=== PATIENT | female | born 1940 | race Hispanic/Latino ===

== ENCOUNTER 2023-07-04 09:41 | Emergency (ER) | payer OTHER ==
--- OUTSIDE RECORDS SUMMARY | 2023-07-04 09:43 | XMS REPORT | Clinical Summary ---
:1940 Author Organization [facility] MD [facility] Center Address [address] [place] [address] Care Team Providers Name Role Phone Conchis Rodney MD Unavailable Salvador Maxwell MD Primary Care Provider Allergies Active Allergy Reactions Criticality Noted Date Comments Codeine Itching, Rash Low 03/27/2019 Medications Medication Sig Dispensed Refills Start Date End Date Status pravastatin (PRAVACHOL) daily. 0 Active 80 mg tablet omeprazole (PriLOSEC) 20 daily. 3 11/14/2018 Active mg capsule atenolol (TENORMIN) 25 daily. 0 Active mg tablet amLODIPine (NORVASC) 5 daily. 0 Active mg tablet aspirin 81 mg EC tablet Take 81 mg by 0 Active mouth daily. calcium Take by mouth 0 Active carbonate/vitamin D3 daily. (CALTRATE 600 + D ORAL) cholecalciferol, vitamin Take 400 Units 0 Active D3, 400 units tablet by mouth daily. cyanocobalamin (VITAMIN Take 1,000 mcg 0 Active B-12) 1000 mcg tablet by mouth daily. omega-3 acid ethyl Take 1 g by 0 Active esters (LOVAZA) 1 g mouth daily. capsule garlic 1 mg cap Take by mouth 0 Active daily. flaxseed powd Take by mouth 0 Ac tive daily. ferrous sulfate 325 mg Take 325 mg by 0 Active (65 mg elemental iron mouth daily. per tablet) tablet alendronate (FOSAMAX) 70 Take 1 tablet 0 Active mg tablet (70 mg) by mouth once a week. Active Problems Problem Noted Date Diagnosed Date Skin lesion 07/15/2020 Pulmonary nodules 01/08/2020 History of malignant neoplasm of ovary 01/07/2020 Encounter for examination prior to antineoplastic 05/22/2019 chemotherapy Constipation 05/08/2019 H/O: cardiovascular disease 04/14/2019 Hypertension 04/14/2019 Gastroesophageal reflux disease 04/14/2019 Encounter for other preprocedural examination 04/13/2019 Overview: Formatting of this note is dif ferent from the original. Lynn yung Oca is a 79 y.o. femal e who presents to POEM service for risk assessment and medical optimization prior to surgery. Surgical and Procedural Summary Future Procedures (Tomorrow to 05/13/20 19) Date Time Procedures Providers Location Status 04/14/2019 1015 Complete Abdominal Hyste rectomyOophorectomy, Partial Or Total, Unilateral Or BilateralLimited Lymphadenectomy For Staging; Pelvic And Para- Aortic Lymph NodesResection (Initial) Of Ovaria n, Tubal, Or Peritoneal Malignancy With Radical Dissection For Debulking (psb) Kyle Leija OR Scheduled Open case Proj Length(mins): 345 Malignant neoplasm of ovary 03/30/2019 Cancer Staging: Clinical stage from 04/14: Stage IIB (Primary) - Signed by Kyle Leija MD on 05/08/2019 Edema of foot 03/28/2019 Osteoporosis 03/23/2019 Abdominal or pelvic swelling, mass, or lump, left lower quad rant 03/23/2019 Elevated cancer antigen 125 (CA 125) 03/23/2019 Encounters Date Type Department Care Team Description 04/19/2023 Follow-Up MD Díaz in Kyle Leija, Malignant n eoplasm of unspecified ovary (Primary Dx); 11:00 AM CDT Mary Ellen Gordillo MD History of malignant neoplasm of ovary; Gynecology Yuan Cortes Pulmonary nodules [address] [place] [address] 04/19/2023 Travel 10/12/[address] IMAGING Mesha Salazar, Malignant neoplasm of unspec ified ovary 10:33 AM CDT - [address] [place] Discharge Disposition: Home 10/12/2022 Main Bldg, 3rd 11:59 PM [place] [address] 10/12/2022 Travel 10/09/2022 Follow-Up MD Díaz in Kyle Leija, Malignant n eoplasm of unspecified ovary (Primary Dx); 1:00 PM ENROLLMENT MANAGEMENT DIRECTOR Mary Ellen Cid - Neoplasm, malignant of ovary <Unspecifie d>; Gynecology Mesha Salazar, History of malignant neoplas m of ovary [address] [place] [address] 10/09/2022 Travel 10/08/2022 Orders Only MD Díaz in Mesha Salazar, Malignant bill plasm [place] of unspecified ovary Gynecology (Primary Dx) [address] [place] [address] 09/02/2022 Orders Only MD Díaz in Mesha Salazar, [place] Gynecology [address] [place] [address] after 07/04/2022 Surgical History Surgery Date Site/Laterality Comments COLONOSCOPY February 17, 2018 UPPER GASTROINTESTINAL Mar 12, 2015 ENDOSCOPY MS COLECTOMY PRTL 04/14/2019 Abdomen/N/A Procedure: PAR TIAL W/COLOPROCTOSTOMY COLECTOMY WITH COLOPROCTOSTOMY (LOW PELVIC ANASTOMOSIS); Shaw rgeon: Kyle Leija MD ; Location: MAIN OR; Service : DIRECTOR OF GROUP SALES - GYNECOLOGIC ONCO LOGY MS BSO W/OMENTECTOMY NORMA&RAD 04/14/2019 Abdomen/N/A Pro cedure: NORMA/BSO WITH DEBULKING DISSECTION OMENTECTOMY AND RADICAL DISSECTION FOR D EBULKING; Surgeon: Kyle griggs MD; Location: MAIN O R; Service: DIRECTOR OF GROUP SALES - GYNECOLOGI C ONCOLOGY MS PELVIC EXAMINATION 04/14/2019 Vagina /N/A Procedure: PELVIC W/ANESTHESIA OTHER THAN EXAMINAT ION UNDER LOCAL ANESTHESIA; Surg carlyn: Kyle Leija MD; Loca tion: MAIN OR; Service: DIRECTOR OF GROUP SALES - GYNECOLOGIC ONCO LOGY Medical History Medical History Date Comments Hypertension Aug 2017 Hyperlipidemia Aug 2016 Gastric reflux Aug 2016 Herpes zoster Aug 2016 Family History Medical History Relation Name Comments -Pancreatic cancer Brother Estuardo Philip 2006 Relation Name Status Comments Brothfay Philip Social History Tobacco Use Types Packs/Day Years Used Date Smoking Tobacco: Former Cigarettes 0.3 0 1959 - 08/02/1969 Smokeless Tobacco: Never Alcohol Use Standard Drinks/Week Comments Yes 0 (1 standard drink = 0.6 oz pure alcoho l) Per day 5 days a week Sex and Gender Information Value Date Recorded Sex Assigned at Not on file Gender Identity Not on file Sexual Orientation Not on file Job Start Date Occupation Industry Not on file Not on file Not on file Obstetrics History Para Term AB IAB SAB Ectopic Multiple Living Live Births 2 2 Date Outcome GA Total Labor/2nd/3rd Weight Sex Delivery Anes PTL [place] A 1 A5 Name Clin Labor Para Para Comments 2 normal vaginal deliveries. Largest baby= 9lbs 2ounces Last Filed Vital Signs Vital Sign Reading Time Taken Comments Blood Pressure 123/75 04/19/2023 11:09 AM CDT Pulse 71 04/19/2023 11:09 AM CDT Temperature 37 C (98.6 F) 04/19/2023 11:09 AM CDT Respiratory Rate 17 04/19/2023 11:09 AM CDT Oxygen Saturation - - Inhaled Oxygen Concentration - - Weight 65 kg (143 lb 4.8 oz) 04/19/2023 11:09 AM CDT Height - - Body Mass Index 27.23 05/22/2019 9:11 AM CDT Plan of Treatment Date Type Department Care Team Description 10/18/2023 8:15 Lab Diagnostic Imaging Mesha Salazar PA AM CDT in [place] [id number] (Work) [place] [address], [address] [place] [address] 10/18/2023 8:55 Ancillary Procedure Diagnostic Imaging Candy Salazar PA AM CDT in [id number] [place] [address] [address] [phone] [facility], [address] (Work) [place] [address] [phone] 10/18/2023 1:30 Follow-Up MD Díaz in [facility], Yuan Gray, PM CDT [facility] - Gynecology [address] [place] [address] [place] [address] [phone] Health Maintenance Due Date Last Done Comments COVID-19 Vaccination (04/02/2023 08/07/2021, , season) 09/06/2020 Procedures Procedure Name Priority Date/Time Associated Diagnosis Comme nts CANCER ANTIGEN 125 Routine 04/19/2023 10:19 History of maligna nt Results for this AM CDT neoplasm of ovar y procedure are in Malignant neoplasm the resul ts of unspecified ovary section . CT CHEST ABDOMEN Routine 10/12/2022 2:10 PM Malignant neoplasm Results for this PELVIS W CONTRAST CDT of unspecified ovary pr ocedure are in the results section. POC CREATININE Routine 10/12/2022 12:03 Results f or this PM CDT procedure are i n the results section. CANCER ANTIGEN 125 Routine 10/09/2022 11:56 Neoplasm, malignan t Results for this AM ENROLLMENT MANAGEMENT DIRECTOR of ovary procedure are i n <Unspecified> the results History of malignant section . neoplasm of ovary after 07/04/2022 Results CA 125 (04/19/2023 10:19 AM CDT)Only the most recent of2 resultswithin the time period is included. athologist Signature CA 125 32.3 <=38.0 U/mL PLANO Comment: Results greater than 11,500.0 U/L may no t be reliable due to matrix effect with extended dilution as it exceeds the lens blank gauger s recommended limit. Caution should be exercised when interpreting such values and done in conjunction with cli nical context. Reference intervals are not available fo r male patients. Results should be interpreted in conjunction with clinical context. This test is measured by electrochemilum inescence immunoassay on Young Eliot immunoassay analyzers. Results obtained in different methods are not interchangeable. [facility] performed at [facility], [address] [place] [address], [place] [address] Specimen Anatomical Collection Method Collection Time Receive d Time (Source) Location / / Volume Laterality Blood 04/19/2023 10:19 04/19/2023 AM CDT 10:55 AM CDT Mesha PECK LAB BLOOD ORDERABLES Performing Organization Address City/State/ZIP Code Phon e Number [facility] [place] [address] Mary Ellen Cid [address] [facility], [address] CT chest abdomen pelvis w contrast (10/12/2022 2:10 PM CDT) Anatomical Region Laterality Modality Abdomen, Pelvis, Chest Computed Tomograp hy Specimen (Source) Anatomical Collection Method Collection Time Re ceived Time Location / / Volume Laterality 10/12/2022 4:10 PM CDT Impressions 10/12/2022 4:26 PM CDT 1. Stable pulmonary nodules since 10/02/2019 and right lower lobe scarring, bronchiectasis and mucus impaction. 2. No metastatic disease in the chest, a bdomen or pelvis. Narrative 10/12/2022 4:26 PM CDT Examination: CT CHEST ABDOMEN PELVIS W C ONTRAST, 10/12/2022 2:10 PM Clinical History: Malignant neoplasm of unspecified ovary Indication: Cancer surveillance, ovarian cancer surveillance with pulm nodules Comparison: CT on 10/06/2021 Technique: CT of the chest, abdomen, and pelvis was performed with intravenous contrast. Findings: Chest: Heart: Heart normal in size. No pericard ial effusion. Lymph nodes: No supraclavicular, mediast inal, hilar or axillary lymphadenopathy. Lungs and pleura: Stable 5 mm right lowe r lobe and 4 mm left upper lobe nodules (8, image 82, 33) unchanged since 2019 likely benign. Other pulmonary nodules also remain stable since 2019. Stable right lower lobe scarring, bronchiectasis and mucus impaction. No consolidation, pleural effusion or pneumothorax. Abdomen/pelvis: Liver, gallbladder, bile ducts: No suspi cious hepatic lesion. No biliary ductal dilatation. Gallbladder is unremarkable. Pancreas: No pancreatic lesion. No pancr eatic duct dilatation. Spleen:Normal in size. No splenic lesion . Adrenals:Unremarkable. No nodule. Kidneys:No hydronephrosis. No suspicious renal mass. Bowel and Mesentery: Post rectosigmoid c olon resection. No bowel wall thickening. No bowel obstruction. No mesenteric mass. Lymph Nodes:No retroperitoneal, mesenter ic, pelvic or inguinal lymphadenopathy. Vessels:Patent. Bladder:No bladder wall thickening. Reproductive organs: Post hysterectomy a nd bilateral salpingo-oophorectomy. Peritoneum: No measurable peritoneal dis ease or ascites. Musculoskeletal/Soft tissues:No aggressi ve osseous lesion. Degenerative changes at L4-L5. No soft tissue mass. Procedure Note Krista Polanco MD - 10/12/2022 Examination: CT CHEST ABDOMEN PELVIS W C ONTRAST, 10/12/2022 2:10 PM Clinical History: Malignant neoplasm of unspecified ovary Indication: Cancer surveillance, ovarian cancer surveillance with pulm nodules Comparison: CT on 10/06/2021 Technique: CT of the chest, abdomen, and pelvis was performed with intravenous contrast. Findings: Chest: Heart: Heart normal in size. No pericard ial effusion. Lymph nodes: No supraclavicular, mediast inal, hilar or axillary lymphadenopathy. Lungs and pleura: Stable 5 mm right lowe r lobe and 4 mm left upper lobe nodules (8, image 82, 33) unchanged since 2019 likely benign. Other pulmonary nodules also remain stable since 2019. Stable right lower lobe scarring, bronchiectasis and mucus impac tion. No consolidation, pleural effusion or pneumothorax. Abdomen/pelvis: Liver, gallbladder, bile ducts: No suspi cious hepatic lesion. No biliary ductal dilatation. Gallbladder is unremarkable. Pancreas: No pancreatic lesion. No pancr eatic duct dilatation. Spleen:Normal in size. No splenic lesion . Adrenals:Unremarkable. No nodule. Kidneys:No hydronephrosis. No suspicious renal mass. Bowel and Mesentery: Post rectosigmoid c olon resection. No bowel wall thickening. No bowel obstruction. No mesenteric mass. Lymph Nodes:No retroperitoneal, mesenter ic, pelvic or inguinal lymphadenopathy. Vessels:Patent. Bladder:No bladder wall thickening. Reproductive organs: Post hysterectomy a nd bilateral salpingo-oophorectomy. Peritoneum: No measurable peritoneal dis ease or ascites. Musculoskeletal/Soft tissues:No aggressi ve osseous lesion. Degenerative changes at L4-L5. No soft tissue mass. IMPRESSION: 1. Stable pulmonary nodules since 2019 and right lower lobe scarring, bronchiectasis and mucus impaction. 2. No metastatic disease in the chest, a bdomen or pelvis. Mesha PECK [facility] CT ORDERABLES POC Creatinine (10/12/2022 12:03 PM CDT) P athologist Signature POC Crea 0.7 0.6 - 1.3 POC TELCOR mg/dL Comment: Medications, especially hydroxyurea or s upplements, such as ascorbate, can interfere with test results causing a falsely and significantly higher result than expected. If a problem is suspected with a patient's result, a sample should be sent to the laboratory for confirmatory testing. Method description: The i-STAT is an maggie lyzer used for in vitro quantification of various analytes in whole blood. The device uses a single disposable cartridge which contains microfabricated sensors, a calibration solution, fluidics system, and a waste chamber. Each test cartridge contains ch emically sensitive biosensors on a silicon chip that are configured to perform specific tests. The microfabricated sensors measure analyte concentration by an electrochemical assay. POC EGFR 86 >=60 mL/min/1.73 sq. m POC TEL COR Comment: The eGFRcr is calculated with the 2020 KD-EPI creatinine equation using creatinine, patient's age, and sex for adults 18 years of age and older. Other factors, especially muscle mass, may affect accuracy and need to be considered. According to the Kidney Disease: Improvi ng Global Outcomes (KDIGO) CKD Work Group 2012 Clinical Practice Guideline, chronic kidney disease (CKD) is defined as the abnormalities of kidney structure or function, present for more than 3 months, with implications for health. CKD should be c lassified by cause, GFR category, and albuminuria category. KDIGO guidelines provide the following GFR categories Stage Description GFR mL/min/1.73 m2 G1* Normal or high >= 90 G2* Mildly decreased 60-89 G3a Mildly to moderately decreased 45-59 G3b Moderately to severely decreased 30- 44 G4 Severely decreased 15-29 G5 Kidney failure <15 *In the absence of evidence of kidney da mage, neither G1 nor G2 fulfill criteria for CKD. POC Clean Dev Yes POC TELCOR Performing Lab [facility] POC TELCO R Comment: [facility], [address] [facility], [place] [address]; Lab Direct or: Cathi Narvaez MD; Waived Point of Care Testing - Nicole Cunningham MD Specimen Anatomical Collection Method Collection Time Receive d Time (Source) Location / / Volume Laterality Blood 10/12/2022 12:03 10/12/2022 PM CDT 12:03 PM CDT Mesha PECK POCT ORDERABLES - DEVICE Performing Organization Address City/State/ZIP Code Phon e Number POC TELCOR Unless otherwise noted, [place] [address] lab tests performed by: Division of Pathology and Laboratory Medicine [address] after 07/04/2022 Insurance Payer Benefit Plan / Subscriber ID Effective Dates Phone Addre ss Type Group AETNA MEDICARE AETNA MEDICARE [id number] 2021-Presen [address] [place] [address] Advance Directives Type Date Recorded Patient Lodge Attendant Explanati on Advance Directives: 03/30/2019 Directive to Physicians Living Will and Family or Surrogates-Susi philip Will Advance Directives: 03/30/2019 Medical Omar r of Speech Language Pathologist Prn Medical Power of Speech Language Pathologist Prn Code Status Date Activated Date Inactivated Comments Full Code 04/14/2019 5:17 PM 04/18/2019 2:52 PM Care Teams Director Of Premium Seat Sales Relationship Specialty Start Date End Date Conchis Rodney, PCP - External Referring Obstetrics/Gynecology 03/15/[address] [place] [id number] Salvador Maxwell MD PCP - General Family Practice 10/06/[address] [place] [phone]
--- OUTSIDE RECORDS SUMMARY | 2023-07-04 09:44 | XMS REPORT | Continuity of Care Document ---
:1940 Author Organization [facility] t Address [address] [place] [address] Care Team Providers Name Role Phone [phone] Primary Care Physician Unavailable SYSTEM, PROVIDER NOT IN Attending Clinician Unavailable ANNA_[email or web address]_S Attending Clinician Unavailable Bina Munoz MD Attending Clinician Unavailable Yuan Cortes MD Attending Clinician BINA MUNOZ Attending Clinician Unavailable MESHA RIZZO Attending Clinician Unavailable Mesha Toro Attending Clinician FLORIDALMA NOONAN Attending Clinician Unavailable [email or web address] Admitting Clinician Unavailable Payers Payer Name Policy Type Policy Number Effective Date Expiration Date S ource Problems Condition Condition Condition Status Onset Resolution Last Treating Co mments Source Name Details Category Date Date Treatment Clinician Date Skin Skin Disease Active 2019- Univers lesion lesion 2-14 ity of 00:00: [place] 00 MD [facility] Pulmonary Pulmonary Disease Active 2020-0 Uni vers nodules nodules 6-08 ity of 00:00: [place] 00 MD [facility] 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 00 MD [facility] Encounter Encounter Disease Active 2018-08 Uni vers for for 0-21 [place] prior to 00 antineopla antineopla An derso stic stic n chemothera chemothera Ca ncer py py Center Constipati Constipati Disease Active 2018-08 U nivers on on ity of 00:00: MD [facility] H/O: H/O: Disease Active Univers cardiovasc cardiovasc 04-14 it y of ulcornell ular 00:00: [place] disease disease MD [facility] Hypertensi Hypertensi Disease Active U nivers on on 04-14 ity of 00:00: MD [facility] Gastroesop Gastroesop Disease Active U nivers hageal hageal 04-14 ity of reflux reflux 00:00: [place] disease disease MD [facility] Encounter Encounter Disease Active Overview: Univers for other for other 04-13 Formattin i ty of preprocedu preprocedu 00:00: g of this [place] ral ral 00 note is examinatio examinatio different [facility] from the n original. [facility] is a 79 y.o. female who presents to POEM service for risk assessmen t and medical optimizat ion prior to surgery. 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 00:00: 00 MD [facility] Edema of Edema of Disease Active Unive rs foot foot 8- ity of 00:00: 00 MD [facility] Osteoporos Osteoporos Disease Active U nivers is is 8- ity of 00:00: 00 MD [facility] Abdominal Abdominal Disease Active Uni vers or pelvic or pelvic 8- ity of swelling, swelling, 00:[place] mass, or mass, or 00 MD lump, left lump, left An derso lower lower n quadrant quadrant Cancer Center Elevated Elevated Disease Active Unive rs cancer cancer 03-23 ity of antigen antigen 00:00: [place] 125 (CA 125 (CA 00 MD 125) 125) [facility] Allergies, Adverse Reactions, Alerts Allergy Allergy Status Severity Reaction(s) Onset Inactive Treating Comm ents Source Name Type Date Date Clinician Codeine Propensi Active Rash 2018- Univers ty to 03-27 ity of adverse 00:00: [place] reaction 00 s [place] n [facility] Center CODEINE DRUG Active Low Itching 2019-0 MD INGREDI 8-26 Anderso 00:00: n 00 CODEINE DRUG Active Low Itching 2019-0 MD INGREDI 8-26 Anderso 00:00: n 00 CODEINE DRUG Active Low Itching 2019-0 MD INGREDI 8-26 Anderso 00:00: n 00 CODEINE DRUG Active Low Itching 2019-0 MD INGREDI 8-26 Anderso 00:00: n 00 CODEINE DRUG Active Low Itching 2019-0 MD INGREDI 8-26 Anderso 00:00: n 00 CODEINE DRUG Active Low Itching 2019-0 MD INGREDI 8-26 Anderso 00:00: n 00 CODEINE DRUG Active Low Itching 2019-0 MD INGREDI 8-26 Anderso 00:00: n 00 CODEINE DRUG Active Low Itching 2019-0 MD INGREDI 8-26 Anderso 00:00: n 00 CODEINE DRUG Active Low Itching 2019-0 MD INGREDI 8-26 Anderso 00:00: n 00 CODEINE DRUG Active Low Itching 2019-0 MD INGREDI 8-26 Anderso 00:00: n 00 CODEINE DRUG Active Low Itching 2019-0 MD INGREDI 8-26 Anderso 00:00: n 00 CODEINE DRUG Active Low Itching 2019-0 MD INGREDI 8-26 Anderso 00:00: n 00 CODEINE DRUG Active Low Itching 2019-0 MD INGREDI 8-26 Anderso 00:00: n 00 CODEINE DRUG Active Low Itching 2019-0 MD INGREDI 8-26 Anderso 00:00: n 00 CODEINE DRUG Active Low Itching 2019-0 MD INGREDI 8-26 Anderso 00:00: n 00 CODEINE DRUG Active Low Itching 2019-0 MD INGREDI 8-26 Anderso 00:00: n 00 CODEINE DRUG Active Low Itching 2019-0 MD INGREDI 8-26 Anderso 00:00: n 00 CODEINE DRUG Active Low Itching 2019-0 MD INGREDI 8-26 Anderso 00:00: n 00 CODEINE DRUG Active Low Itching 2019-0 MD INGREDI 8-26 Anderso 00:00: n 00 CODEINE DRUG Active Low Itching 2019-0 MD INGREDI 8-26 Anderso 00:00: n 00 CODEINE DRUG Active Low Itching 2019-0 MD INGREDI 8-26 Anderso 00:00: n 00 CODEINE DRUG Active Low Itching 2019-0 MD INGREDI 8-26 Anderso 00:00: n 00 CODEINE DRUG Active Low Itching 2019-0 MD INGREDI 8-26 Anderso 00:00: n 00 CODEINE DRUG Active Low Itching 2019-0 MD INGREDI 8-26 Anderso 00:00: n 00 CODEINE DRUG Active Low Itching 2019-0 MD INGREDI 8-26 Anderso 00:00: n 00 Family History Family Member Diagnosis Comments Start Date Stop Date Source Natural brother -Pancreatic cancer [facility] [place] [facility] Social History Social Habit Start Date Stop Date Quantity Comments Source Sexual orientation Univer sity of Erica PAUL Bucky fredi [facility] Alcohol intake 2023-04-19 2023-04-19 Current drinker Unive rsity of 00:00:00 00:00:00 of alcohol Erica rai (finding) [facility] History of Social 2023-04-19 2023-04-19 Univers ity of function 00:00:00 00:00:00 Erica rai [facility] Exposure to 2022-10-02 2022-10-12 Not sure University of SARS-CoV-2 (event) 00:00:00 10:32:00 [facility] Cigarettes smoked 2019-03-27 2019-03-27 Univers ity of current (pack per 00:00:00 00:00:00 Erica Díaz ) - Reported Cancer Ce nter Cigarette 2019-03-27 2019-03-27 University of pack-years 00:00:00 00:00:00 [place] MD Bucky rai [facility] Tobacco use and 2019-03-27 2019-03-27 Smokeless Universit y of exposure 00:00:00 00:00:00 tobacco non-user [facility] Alcohol Comment 2019-03-27 2019-03-27 Per day 5 days a Uni versity of 00:00:00 00:00:00 week [place] MD Bucky rai [facility] History of tobacco 1969-08-02 Cigarette Smoker University of use 00:00:00 [place] MD Bucky rai [facility] Sex [birth year] Universit y of 00:00:00 00:00:00 [place] MD Bucky rai [facility] Smoking Status Start Date Stop Date Source Ex-smoker 2019-03-27 00:00:00 2019-03-27 00:00:00 Universi ty of [facility] Medications Ordered Filled Start Stop Current Ordering Indication Dosage Frequency Signature Comments Components Source Medication Medication Date Date Medication? Clinician (SIG) Name Name alendronate Yes 70mg Take 1 Univ ers (FOSAMAX) 3-10 tablet (70 ity of 70 mg 19:48: mg) by [place] tablet 09 mouth once MD a week. [facility] alendronate Yes 70mg Take 1 Univ ers (FOSAMAX) 3-10 tablet (70 ity of 70 mg 19:48: mg) by [place] tablet 09 mouth once MD a week. [facility] pravastatin Yes daily. Univ ers (PRAVACHOL) 3-09 ity of 80 mg 19:41: [place] tablet 23 [facility] atenolol Yes daily. Univers (TENORMIN) 3-09 ity of 25 mg 19:41: [facility] 23 [facility] amLODIPine Yes daily. Unive rs (NORVASC) 5 3-09 ity of mg tablet 19:41: [place] [address] MD [facility] aspirin 81 Yes 81mg Take 81 mg U nivers mg EC 10-08 by mouth ity of tablet 19:41: daily. [place] [address] MD [facility] calcium Yes Take by Univers carbonate/v 3-09 mouth ity of itamin D3 19:41: daily. [place] (CALTRATE 23 600 + D Anderso ORAL) [facility] [place] cholecalcif Yes 400U Take 400 Un ingrid ayan, 3-09 Units by ity of vitamin D3, 19:41: mouth [place] 400 units 23 daily. tablet Allen [facility] cyanocobala Yes 1000ug Take 1,000 Univers min 3-09 mcg by ity of (VITAMIN 19:41: mouth [place] B-12) 1000 23 daily. mcg tablet AlanRUST omega-3 Yes 1g Take 1 g [facility] acid ethyl 3-09 by mouth ity o f esters 19:41: daily. [place] (LOVAZA) 1 g capsule [facility] garlic 1 mg Yes Take by Uni vers cap 3-09 mouth ity of 19:41: daily. MD Allen marsh [facility] flaxseed Yes Take by [place] [facility] s powd 3-09 mouth ity of 19:41: daily. MD Allen marsh [facility] ferrous Yes 325mg Take 325 Unive rs sulfate 325 10-08 mg by ity of mg (65 mg 19:41: mouth [place] elemental 23 daily. iron per [facility] pravastatin Yes daily. Univ ers (PRAVACHOL) 3-09 ity of 80 mg 19:41: [place] tablet 23 MD [facility] atenolol Yes daily. Univers (TENORMIN) 3-09 ity of 25 mg 19:41: [place] tablet 23 MD Allen marsh [facility] amLODIPine Yes daily. Unive rs (NORVASC) 5 3-09 ity of mg tablet 19:41: MD Allen marsh [facility] aspirin 81 Yes 81mg Take 81 mg U nivers mg EC 3-09 by mouth ity of tablet 19:41: daily. MD Allen marsh [facility] calcium Yes Take by Univers carbonate/v 3-09 mouth ity of itamin D3 19:41: daily. [place] (CALTRATE 23 600 + D Anderso ORAL) [facility] cholecalcif Yes 400U Take 400 Un ingrid ayan, 3-09 Units by ity of vitamin D3, 19:41: mouth [place] 400 units 23 daily. tablet Allen marsh [facility] cyanocobala Yes 1000ug Take 1,000 Univers min 10-08 mcg by ity of (VITAMIN 19:41: mouth [place] B-12) 1000 23 daily. mcg tablet [facility] omega-3 Yes 1g Take 1 g [facility] acid ethyl 09 by mouth ity o f esters 19:41: daily. [place] (LOVAZA) 08 24 g capsule AlanRUST garlic 1 mg Yes Take by Uni vers cap 10-08 mouth ity of 19:41: daily. MD Allen marsh [facility] flaxseed Yes Take by [place] [facility] s powd 10-08 mouth ity of 19:41: daily. MD Allen marsh [facility] ferrous Yes 325mg Take 325 Univ rs sulfate 325 10-08 mg by ity of mg (65 mg 19:41: mouth [place] elemental 23 daily. iron per Allen tablet) tablet [facility] alendronate 2021- No once a Uni vers (FOSAMAX) 10-08 week. ity of 70 mg 19:41: 00:00 [place] tablet 23 :00 MD Allen marsh [facility] omeprazole 2019-0 Yes daily. Unive rs (PriLOSEC) 4-15 ity of 20 mg 00:00: [place] capsule 00 MD Allen marsh [facility] omeprazole 2019-0 Yes daily. Unive rs (PriLOSEC) 4-15 ity of 20 mg 00:00: [place] capsule 00 MD Allen marsh [facility] Vital Signs Vital Name Observation Time Observation Value Comments Source Systolic blood 2023-04-19 16:09:11 123 mm[Hg] Univer sity of pressure Erica Phillips [facility] Diastolic blood 2023-04-19 16:09:11 75 mm[Hg] Unive rsity of pressure Erica Phillips [facility] Heart rate 2023-04-19 16:09:11 71 /min [facility] [place] [facility] Body temperature 2023-04-19 16:09:11 37 Joanne Univ ersity of [place] [facility] Respiratory rate 2023-04-19 16:09:11 17 /min Univ ersity of [place] [facility] Body weight 2023-04-19 16:09:11 65 kg [facility] ty [facility] [place] [facility] BMI 2023-04-19 16:09:11 27.23 kg/m2 [facility] [place] [facility] Systolic blood 2022-10-09 20:15:00 124 mm[Hg] Univer sity of pressure [place] [facility] Diastolic blood 2022-10-09 20:15:00 73 mm[Hg] Unive rsity of pressure [place] [facility] Heart rate 2022-10-09 20:15:00 61 /min [facility]i ty [facility] [place] [facility] Body temperature 2022-10-09 20:15:00 37 Joanne Univ ersity of [place] [facility] Respiratory rate 2022-10-09 20:15:00 17 /min Univ ersity of [place] [facility] Body weight 2022-10-09 20:15:00 64.7 kg [facility] [place] [facility] BMI 2022-10-09 20:15:00 27.10 kg/m2 [facility] [place] [facility] Procedures Procedure Date / Time Performed Performing Clinician Sour e CANCER ANTIGEN 125 2023-04-19 15:19:00 Mesha Rizzo [facility] CHEST ABDOMEN 2022-10-12 19:10:00 Mesha Rizzo [facility] PELVIS W CONTRAST MD Díaz Ca [facility] Center POC CREATININE 2022-10-12 17:03:00 Mesha Rizzo [facility] [place] [facility] CANCER ANTIGEN 125 2022-10-09 17:56:58 [facility] CANCER ANTIGEN 125 2022-04-13 14:59:00 [facility] Plan of Care Planned Activity Planned Date Details Comments Source Future Scheduled 2023-05-22 COVID-19 Vaccination [facility] [place] Test 06:39:08 ( season) MD Emir hair Cancer [code = COVID-19 Center Vaccination ( season)] Future Scheduled 2022-10-15 COVID-19 Vaccination Uni vers[facility] [place] Test 12:15:44 (4 - Booster) [code = Cancer COVID-19 Vaccination Center (4 - Booster)] Encounters Start End Encounter Admission Attending Care Care Encounter Source Date/Time Date/Time Type Type Clinicians Facility Department ID 2021-08-07 Outpatient SYSTEM, EMA BOO [id number] 11:57:42 PROVIDER Alan marsh 2021-04-03 Outpatient SYSTEM, EMA BOO [id number] 08:40:40 PROVIDER Alan marsh 2023-05-28 2023-05-28 Outpatient GC_GCBZW_Ka PRIV PRIV [id number] [facility] 00:00:00 00:00:00 diyala_S [id number] [facility] al 2023-04-19 2023-04-19 Follow-Up Bina Munoz 1.2.840.1 [id number] [facility] 11:00:00 11:30:00 Yuan Cortes 21295.1.1 ity of 3.412.2.7 [place] .3.108063 .8 [facility] 2023-04-19 2023-04-19 Outpatient HUAN MUNOZ MDA MDA [id number] 10:57:32 10:57:32 BINA marsh 2023-04-19 2023-04-19 Outpatient MESHA RIZZO MDA, MDA [id number] 10:18:50 10:50:19 Alan marsh 2023-04-19 2023-04-19 Travel 1.2.840.1 [id number] [id number] [facility] 00:00:00 00:00:00 00967.1.1 350.1.13.41 ity of 3.412.2.7 2.[place].7.3.698 [place] .3.596525 084.8 .8 Allen marsh [facility] 2022-10-12 2022-10-12 Hospital Mesha Rizzo 1.2.840.1 [id number] Univers 10:33:57 23:59:00 Encounter 71952.1.1 it y of 3.412.2.7 [place] .3.424209 MD Alcala8 [facility] 2022-10-12 2022-10-12 [facility] Mesha Rizzo 1.2.840.1 [id number] Univers 10:33:57 23:59:00 Encounter 39415.1.1 it y of 3.412.2.7 [place] .3.541048 MD Alcala8 [facility] 2022-10-12 2022-10-12 Travel 1.2.840.1 1.2.758.577 [id number] Univers 00:00:00 00:00:00 26128.1.1 350.1.13.41 ity of 3.412.2.7 2.2.7.3.698 [place] .3.076679 084.8 MD Alcal[place]8 [facility] 2022-10-12 2022-10-12 Travel 1.2.840.1 1.2.237.198 [id number] Univers 00:00:00 00:00:00 27497.1.1 350.1.13.41 ity of 3.412.2.7 2.2.7.3.698 [place] .3.297147 084.8 MD Jean [facility] 2022-10-09 2022-10-09 Follow-Up Bina Munoz 1.2.840.1 [id number] Univers 13:00:00 13:30:00 Mesha Rizzo 24679.1.1 ity of 3.412.2.7 [place] .3.416445 MD Jean [facility] 2022-10-09 2022-10-09 Follow-Up Bina Brink 1.2.840.1 [id number] Univers 13:00:00 13:30:00 Mesha Rizzo 68575.1.1 ity of 3.412.2.7 [place] .3.829271 MD Jean [facility] 2022-10-09 2022-10-09 Outpatient EL MESHA RIZZO [facility] [id number] 11:47:39 11:52:11 [facility] 2022-10-09 2022-10-09 Travel 1.2.840.1 [id number] [id number] Univers 00:00:00 00:00:00 02205.1.1 350.1.13.41 ity of 3.412.2.7 2.2.7.3.698 [place] .3.203553 084.8 MD Alcal[place]8 [facility] 2022-10-09 2022-10-09 Travel 1.2.840.1 1.2.759.156 [id number] Univers 00:00:00 00:00:00 68396.1.1 350.1.13.41 ity of 3.412.2.7 2.2.7.3.698 [place] .3.800781 084.8 MD Jean [facility] 2022-10-08 2022-10-08 Mesha Nicholson 1.2.840.1 [id number] Univers 00:00:00 00:00:00 Only 06960.1.1 ity of 3.412.2.7 [place] .3.678168 MD Jean [facility] 2022-10-08 2022-10-08 Mesha Nicholson 1.2.840.1 [id number] Univers 00:00:00 00:00:00 Only 40997.1.1 ity of 3.412.2.7 [place] .3.427333 MD Jean [facility] 2022-09-02 2022-09-02 Mesha Nicholson 1.2.840.1 [id number] Univers 00:00:00 00:00:00 Only 78021.1.1 ity of 3.412.2.7 [place] .3.648365 MD Jean [facility] 2022-09-02 2022-09-02 Zuly Rizzo, Mesha 1.2.840.1 [id number] Univers 00:00:00 00:00:00 Only 64072.1.1 ity of 3.412.2.7 [place] .3.201063 MD Alcal[place]8 [facility] 2022-04-13 2022-04-13 Office Bina Brink 1.2.840.1 [id number] [facility] 11:00:00 11:30:00 Visit Mesha Rizzo 05604.1.1 ity of 3.412.2.7 [place] .3.164951 MD Alcala8 [facility] 2022-04-13 2022-04-13 Outpatient MESHA KOWALSKI MDA MDA [id number] 09:29:45 10:03:40 Alan marsh 2022-04-13 2022-04-13 Travel 1.2.840.1 1.2.306.851 [id number] Univers 00:00:00 00:00:00 29490.1.1 350.1.13.41 ity of 3.412.2.7 2.2.7.3.698 [place] .3.164919 084.8 MD [place]8 [facility] 2021-10-06 2021-10-06 Outpatient HUAN MUNOZ EMA MDA [id number] 11:24:51 11:24:51 BINA marsh 2021-10-06 2021-10-06 Outpatient MESHA KOWALSKI MDA MDA [id number] 07:16:58 07:16:58 Alan marsh 2021-10-06 2021-10-06 Outpatient MESHA KOWALSKI MDA MDA [id number] 07:16:45 07:16:45 Alan marsh 2021-06-16 2021-06-16 Outpatient HUAN MUNOZ EMA MDA [id number] 09:27:02 09:27:02 BINA marsh 2021-06-16 2021-06-16 Outpatient HUAN NOONANEMA MDA [id number] 09:07:11 09:20:19 FLORIDALMA marsh 2021-02-17 2021-02-17 Outpatient HUAN MUNOZ MDA MDA [id number] 12:46:00 12:46:00 BINA marsh 2021-02-17 2021-02-17 Outpatient HUAN NOONAN MDA MDA [id number] 08:22:47 08:22:47 FLORIDALMA marsh 2021-02-17 2021-02-17 Outpatient HUAN NOONAN MDA MDA [id number] 07:48:57 07:48:57 FLORIDALMA marsh 2020-10-14 2020-10-14 Outpatient MESHA KOWALSKI MDA MDA [id number] 07:28:39 08:11:39 Alan marsh 2020-10-14 2020-10-14 Outpatient HUAN MUNOZ MDA MDA [id number] 07:54:20 07:54:20 BINA marsh 2020-07-15 2020-07-15 Outpatient HUAN MUNOZ MDA MDA [id number] 12:48:51 12:48:51 BINA marsh 2020-07-15 2020-07-15 Outpatient MESHA KOWALSKI MDA MDA [id number] 08:23:57 08:23:57 Alan marsh 2020-07-15 2020-07-15 Outpatient MESHA KOWALSKI MDA MDA [id number] 08:23:22 08:23:22 Alan marsh 2020-04-15 2020-04-15 Outpatient HUAN MUNOZ MDA MDA [id number] MD 12:35:24 12:35:24 BINA marsh 2020-04-15 2020-04-15 Outpatient MESHA KOWALSKI MDA MDA [id number] 10:09:19 10:09:19 Alan marsh 2020-04-15 2020-04-15 Outpatient HUAN NOONAN MDA MDA [id number] MD 10:01:01 10:01:01 FLORIDALMA marsh Results Test Description Test Time Test Comments Results Result Comments Source POC Creatinine 2022-10-12 17:05:15 Test Item Value Reference Range Interpretation Comme nts POC Crea (test code = 0.7 mg/dL 0.6-1.3 Medica tions, especially 15136-1) hydroxyurea or supplements, such as ascorba te, can interfere with test results causing a false ly and significantly h igher result than expected. If a problem is suspected with a patient's result, a sampl e should be sent to the lab oratory for confirmatory te sting. Method description: Th e i-STAT is an analyzer used f or in vitro quantification of various analytes in who le blood. The device uses a s laron disposable cart ridge which contains microf abricated sensors, a marilin bration solution, fluid ics system, and a waste chamber . Each test cartridge conta ins chemically sensitive biose nsors on a silicon chip th at are configured to p erform specific tests. The micr ofabricated sensors measure analyte concentration b y an electrochemical assay. POC EGFR (test code = 86 See_Comment The eG FRcr [place] [address]) the 2020 CKD-EP I creatinine equation using creatinine, patient's age, and sex for adults 18 years of age and older. Other fa ctors, especially musc le mass, may affect accuracy and need to be considered.Acco rding to the Kidney Disease: Improving Global Outcomes (KDIGO) CKD Work Group 2012 Clinical Practice Guidel ine, chronic kidney disease (CKD) is defined as the abnormalities of kidney struc ture or function, prese nt for more than 3 months, with implications fo r health. CKD should be class ified by cause, GFR category, a nd albuminuria category. KDIGO guidelines provide the fol lowing GFR categoriesStage Description GFR mL/min/1.73 m2G1* Normal or high >= 90G2 * Mildly decreased 60-89 G3a Mildly to moderately decr eased 45-59G3b Moderately to s everely decreased 30-44 G4 Severely decreased 15-29 G5 Kidney failure <15*In the absence of evidence of kid jesica damage, neither G1 nor G2 fulfill criteria for CK D. [Automated message] The sy stem which generated this result transmitted ref erence range: >=60 mL/min/1.7 3 sq. m. The reference range was not used to interpret th is result as normal/abnormal . POC Clean Dev (test code Yes = 6672) Performing Lab (test code [facility] = 83788) [facility], [address], [place], [place] [address]; Gmat Tutor: Cyndi Narvaez MD; Waived Point of Care T esting - Nicole Cunningham, MD [facility] [id number] 17:05:15 Test Item Value Reference Range Interpretation Comments POC Crea (test 0.7 mg/dL 0.6-1.3 Medications, code = 15795-2) especially h ydroxyurea or supplements, such as ascorbate, c an interfere with test results causing a falsely and significantly h igher result than exp ected. If a problem is suspected with a patient's resul t, a sample should b e sent to the laborato for confirmatory te sting. Method descript ion: The i-STAT is a n analyzer used f or in vitro quantific ation of various anal ytes in whole blood. Th e device uses a s laron disposable cart ridge which contains microfabricated sensors, a marilin bration solution, fluid ics system, and a w aste chamber. Each t est cartridge conta ins chemically sens itive biosensors on a silicon chip th at are configured to p erform specific tests. The microfabricated sensors measure analyte concent ration by an electroch emical assay. POC EGFR (test 86 See_Comment The eGFRcr is code = 83997) calculated wit h the 2020 CKD-EPI creatinine equa tion using creatinin e, patient's age, and sex for adults 18 y ears of age and older. Other factors, especi ally muscle mass, ma y affect accuracy and need to be considered.Acco rding to the Kidney D isease: Improving Globa l Outcomes (KDIGO ) CKD Work Group 2012 Clinical Practi ce Guideline, library services assistant kyle kidney disease (CKD) is defined as t he abnormalities o f kidney structur e or function, prese nt for more than 3 mon ths, with implicatio ns for health. CKD chiquita uld be classified by c ause, GFR category, a nd albuminuria cat egory. KDIGO guideline s provide the fol lowing GFR categoriesS tage Description GFR mL/min/1.73 m2G 1* Normal or high >= 90G2* Mildly de creased 60-89G3a Mildly to moderately decr eased 45-59G3b Modera tely to severely decrea sed 30-44G4 Severel y decreased 15-29 G5 Kidney failure <15*In the absence of evidence of kid jesica damage, neither G1 nor G2 fulfill crit eria for CKD. [Autom ated message] The sy stem which generated this result transmit betsy reference range : >=60 mL/min/1.73 sq. m. The reference range was not used to int erpret this result as normal/abnormal . POC Clean Dev Yes (test code = 6672) Performing Lab [facility] (test code = [facility] [place] [address]) Clinical Lab, [address] [place] [address], [place], [place] [address]; Gmat Tutor: Cyndi Narvaez MD; Waived Point of Care Testing - Nicole mills MD [facility] MD [facility] [place]
[2023-07-04] MEDS ORDERED: NA CHLORIDE 0.9% 1,000 ML ONE (10:20)
[2023-07-04] MEDS ORDERED: NA CHLORIDE 0.9% 500 ML ONE (10:20)
[2023-07-04 10:27] LABS: Protime INR 1.05
[2023-07-04 10:30] LABS: Absolute Lymphocytes (CBC) 1.5 K/uL (0.7-4.9); Hematocrit 40.5 % (36.0-45.0); Lymphocytes % 25.9 % (15.3-44.8); MCV 92.9 fL (80-100); MPV 8.6 fL (7.6-11.3); Platelets 181 thou/uL (152-406); RBC Red Blood Cell Count 4.35 M/uL (3.86-4.86)
[2023-07-04 10:44] LABS: Albumin 3.8 g/dL (3.4-5.0); Bilirubin Direct 0.2 mg/dL (0-0.2); Bilirubin Indirect, Calculated 0.4 mg/dL (0.2-0.8); Bilirubin Total 0.6 mg/dL (0.2-1.0); Magnesium 2.2 mg/dL (1.6-2.4); Protein, Total 6.7 g/dL (6.4-8.2); Troponin High Sensitivity 6.9 pg/mL (<58.9)
--- NOTE | 2023-07-04 10:57 | RAD REPORT ---
EXAM DESCRIPTION: CT - Head Brain Wo Cont - 07/04/2023 10:25 am CLINICAL HISTORY: Dizziness COMPARISON: 2014 TECHNIQUE: Computed axial tomography of the head was obtained. IV contrast was not requested. All CT scans are performed using dose optimization technique as appropriate and may include automated exposure control or mA/KV adjustment according to patient size. FINDINGS: An intracranial bleed is not seen The ventricles are normal in caliber No extra-axial fluid collection is noted. Mild low-density areas within periventricular, deep and subcortical white matter likely represent isc hemic changes secondary to small vessel disease. Fluid within the sinuses/ mastoids is not seen. IMPRESSION: No acute intracranial abnormality is seen If patient's symptoms persist MRI of the brain would be recommended
[2023-07-04 11:28] LABS: Specific Gravity 1.005 (1.005-1.030); Urine Bacteria None Seen /HPF (<20); Urine Bilirubin NEGATIVE (Negative); Urine Blood Negative (Negative); Urine Clarity Clear (Clear); Urine Color Colorless (Yellow); Urine Glucose NEGATIVE (Negative); Urine Protein NEGATIVE (Negative); Urine RBC <5 /HPF (None Seen); Urine Urobilinogen Normal (Normal); Urine pH 6.5 (5.0-7.0)
--- NOTE | 2023-07-04 11:34 | RAD REPORT ---
EXAM DESCRIPTION: [place] Single View07/04/2023 10:44 am CLINICAL HISTORY: Cough COMPARISON: October 2022 FINDINGS: Mild medial right basilar lung opacities Left lung appears clear of acute infiltrate The heart is normal size IMPRESSION: Mild medial right basilar opacities may indicate a mild infiltrate
--- NOTE | 2023-07-04 11:46 | EDPHYS ---
Physician Documentation [facility] Name: Lynn Max Age: 83 yrs Sex: Female : 1940 Arrival Date: 07/04/2023 Time: 09:41 Bed 2 Private MD: Salvador Maxwell ED Physician Nura Díaz HPI: 07/04 11:16 This 83 yrs old Female presents to ER via Ambulatory with complaints of ember Dizziness. 11:16 The patient presents with dizziness, generalized weakness. Onset: The symptoms/episode ember began/occurred just prior to arrival, this morning. Context: occurred at home. Modifying factors: The symptoms are alleviated by lying down, the symptoms are aggravated by changing position. Associated signs and symptoms: The patient has no apparent associated signs or symptoms. Severity of symptoms: At their worst the symptoms were mild in the emergency department the symptoms are unchanged. Patient's baseline: Neuro: alert and fully oriented. The patient has not experienced similar symptoms in the past. Historical: - Allergies: 09:57 Codeine; aa5 - Home Meds: 10:00 amlodipine 5 mg tablet [Active]; pravastatin 80 mg oral tablet [Active]; omeprazole aa5 20mg oral tablet, delayed release (enteric coated) [Active]; alendronate 70 mg oral tablet every week [Active]; ferrous sulfate 325 mg (65 mg iron) oral tablet [Active]; calcium [Active]; Vitamin D3 oral [Active]; Aspirin 81mg Oral [Active]; Knifley-3 oral [Active]; garlic oral [Active]; - PMHx: 09:57 Hypertensive disorder; Osteoporosis; Hypercholesterolemia; aa5 - Immunization history:: Adult Immunizations unknown. - Social history:: Smoking status: Patient denies any tobacco usage or history of. - Family history:: not pertinent. ROS: 11:16 Constitutional: Negative for fever, chills, and weight loss, Eyes: Negative for injury, ember pain, redness, and discharge, ENT: Negative for injury, pain, and discharge, Neck: Negative for injury, pain, and swelling, Cardiovascular: Negative for chest pain, palpitations, and edema, Respiratory: Negative for shortness of breath, cough, wheezing, and pleuritic chest pain, Abdomen/GI: Negative for abdominal pain, nausea, vomiting, diarrhea, and constipation, Back: Negative for injury and pain, : Negative for injury, bleeding, discharge, and swelling, MS/Extremity: Negative for injury and deformity, Skin: Negative for injury, rash, and discoloration, Psych: Negative for depression, anxiety, suicide ideation, homicidal ideation, and hallucinations, Allergy/Immunology: Negative for hives, rash, and allergies, Endocrine: Negative for neck swelling, polydipsia, polyuria, polyphagia, and marked weight changes, Hematologic/Lymphatic: Negative for swollen nodes, abnormal bleeding, and unusual bruising, 11:16 Neuro: Positive for dizziness, weakness, Exam: 11:16 Constitutional: This is a well developed, well nourished patient who is awake, alert, ember and in no acute distress. Head/Face: Normocephalic, atraumatic. Eyes: Pupils equal round and reactive to light, extra-ocular motions intact. Lids and lashes normal. Conjunctiva and sclera are non-icteric and not injected. Cornea within normal limits. Periorbital areas with no swelling, redness, or edema. ENT: Nares patent. No nasal discharge, no septal abnormalities noted. Tympanic membranes are normal and external auditory canals are clear. Oropharynx with no redness, swelling, or masses, exudates, or evidence of obstruction, uvula midline. Mucous membranes moist. Neck: Trachea midline, no thyromegaly or masses palpated, and no cervical lymphadenopathy. Supple, full range of motion without nuchal rigidity, or vertebral point tenderness. No Meningismus. Chest/axilla: Normal chest wall appearance and motion. Nontender with no deformity. No lesions are appreciated. Cardiovascular: Regular rate and rhythm with a normal S1 and S2. No gallops, murmurs, or rubs. Normal PMI, no JVD. No pulse deficits. Respiratory: Lungs have equal breath sounds bilaterally, clear to auscultation and percussion. No rales, rhonchi or wheezes noted. No increased work of breathing, no retractions or nasal flaring. Abdomen/GI: Soft, non-tender, with normal bowel sounds. No distension or tympany. No guarding or rebound. No evidence of tenderness throughout. Back: No spinal tenderness. No costovertebral tenderness. Full range of motion. Female : Normal external genitalia. Skin: Warm, dry with normal turgor. Normal color with no rashes, no lesions, and no evidence of cellulitis. MS/ Extremity: Pulses equal, no cyanosis. Neurovascular intact. Full, normal range of motion. Neuro: Awake and alert, GCS 15, oriented to person, place, time, and situation. Cranial nerves II-XII grossly intact. Motor strength 5/5 in all extremities. Sensory grossly intact. Cerebellar exam normal. Normal gait. Psych: Awake, alert, with orientation to person, place and time. Behavior, mood, and affect are within normal limits. 11:23 ECG was reviewed by the Attending Physician. ember Vital Signs: 09:46 BP 137 / 95; Pulse 74; Resp 16 S; Temp 98(TE); Pulse Ox 95% on R/A; Weight 65.32 kg aa5 (R); Height 5 ft. 2 in. (R); 09:50 BP 137 / 95; Pulse 69; Resp 17; Temp 98.1(O); Pulse Ox 99% on R/A; rs5 10:50 BP 121 / 72; Pulse 66; Resp 18; Pulse Ox 99% on R/A; rs5 12:28 BP 125 / 77; Pulse 70; Resp 18; Pulse Ox 99% on R/A; rs5 09:46 Body Mass Index 26.34 (65.32 kg, 157.48 cm) aa5 NIH Stroke Scale Scores: 11:20 NIHSS Score: 0 ember MDM: 09:48 Patient medically screened. ember 11:18 Differential diagnosis: cardiac arrhythmia, CVA, generalized weakness, GI bleed, ember hypovolemia, idiopathic dizziness, near-syncope, sepsis, TIA, vertigo. Data reviewed: vital signs, nurses notes, lab test result(s), EKG, radiologic studies, CT scan, doppler, plain films. Consideration of Admission/Observation Escalation of care including admission/observation considered. I considered the following discharge prescriptions or medication management in the emergency department Medications were administered in the Emergency Department. See MAR. Independent interpretation of the following test(s) in the Emergency Department EKG: See my EKG interpretation above. Test considered but Not performed: MRI: no mri brain. Historians other than the Patient: Family Member: son well informed. Care significantly affected by the following chronic conditions: Hypertension, osteoporosis, high cholesterol. Counseling: I had a detailed discussion with the patient and/or guardian regarding the historical points, exam findings, and any diagnostic results supporting the discharge/admit diagnosis, lab results, radiology results, the need for outpatient follow up, for definitive care, a family practitioner. 07/04 10:00 Order name: Basic Metabolic Panel; Complete Time: 11:11 [facility] 07/04 10:00 Order name: CBC with Diff; Complete Time: 11:11 [facility] 07/04 10:00 Order name: LFT's; Complete Time: 11: [facility] 07/04 10:00 Order name: Magnesium; Complete Time: : [facility] 07/04 10:00 Order name: NT PRO-BNP; Complete Time: 11: [facility] 07/04 10:00 Order name: PT-INR; Complete Time: : [facility] 07/04 10:00 Order name: Troponin HS; Complete Time: : [facility] 07/04 10:00 Order name: Urinalysis w/ reflexes; Complete Time: 11:43 [facility] 07/04 10:00 Order name: Lipase; Complete Time: 11:11 [facility] 07/04 11:43 Order name: Blood Culture Adult (2) [facility] 07/04 10:00 Order name: XRAY Chest (1 view); Complete Time: 11:43 [facility] 07/04 10:00 Order name: CT Head Brain wo Cont; Complete Time: 11:11 [facility] 07/04 10:00 Order name: US Carotid Artery Bilateral; Complete Time: 12:40 [facility] 07/04 10:00 Order name: EKG; Complete Time: 10: [facility] 07/04 10:00 Order name: Cardiac monitoring; Complete Time: 10: [facility] 07/04 10:00 Order name: EKG - Nurse/Tech; Complete Time: 10: [facility] 07/04 10:00 Order name: IV Saline Lock; Complete Time: : [facility] 07/04 10:00 Order name: Labs collected and sent; Complete Time: : [facility] 07/04 10:00 Order name: O2 Per Protocol; Complete Time: : [facility] 07/04 10:00 Order name: O2 Sat Monitoring; Complete Time: 10: [facility] 07/04 11:22 Order name: PO challenge; Complete Time: 11:42 [facility] EC:23 Rate is 67 beats/min. Rhythm is regular. QRS Kite is Normal. NM interval is normal. QRS ember interval is normal. QT interval is normal. No Q waves. T waves are Normal. No ST changes noted. Clinical impression: NSR w/ Non-specific ST/T Changes and No evidence of ischemia. Interpreted by me. Reviewed by me. Administered Medications: 10:10 Drug: NS 0.9% IV 500 ml IV at bolus once Route: IV; Rate: bolus; Site: left antecubital;rs5 10:30 Follow up: Response: No adverse reaction rs5 10:10 Drug: NS 0.9% IV 1000 ml IV at 125 ml/hr continuous Route: IV; Rate: 125 ml/hr; Site: rs5 left antecubital; 10:25 Follow up: Response: No adverse reaction rs5 11:55 Drug: Rocephin IV 1 grams IV at per protocol once; Given slow IV push per pharmacy rs5 instructions Route: IV; Rate: per protocol; Site: left antecubital; 12:20 Follow up: Response: No adverse reaction rs5 11:55 Drug: Amoxicillin-Clavulanate PO 875 mg PO once Route: PO; rs5 12:20 Follow up: Response: No adverse reaction rs5 Disposition Summary: 07/04/23 11:45 Discharge Ordered Notes: Location: Home ember Problem: new ember Symptoms: have improved ember Condition: Stable ember Diagnosis - Dizziness and giddiness ember - Weakness ember - Pneumonia due to other specified bacteria ember Followup: ember - With: Salvador Maxwell MD - When: 2 - 3 days - Reason: Recheck today's complaints, Continuance of care, Re-evaluation by your physician Discharge Instructions: - Discharge Summary Sheet ember - Dizziness ember - Community-Acquired Pneumonia, Adult ember - Weakness ember - Fatigue ember - Near-Syncope, [id number] ember - Weakness, [id number]-jj-[id number] ember - Dizziness, [id number]-ym-[id number] ember - Deconditioning ember Forms: - Medication Reconciliation Form ember - Thank You Letter ember - Antibiotic Education ember - Prescription Opioid Use ember - Patient Portal Instructions ember - Leadership Thank You Letter [facility] Prescriptions: - Augmentin 875-125 mg Oral Tablet - take 1 tablet ORAL route every 12 hours for 10 days; 20 tablet; Refills: 0, ember Product Selection Permitted NIH Stroke Scale - NIH Stroke Score Date: 07/04/2023 Time: 11:20 Total Score = 0 10. Dysarthria (speech clarity - read or repeat words) - 0(Normal) 11. Extinction and Inattention (visual/tactile/auditory/spatial/personal) - 0(No abnormality) 1a. Level of Consciousness (LOC) - 0(Alert) 1b. Level of Consciousness (LOC) (Month \T\ Age) - 0(Both) 1c. LOC Commands (Open \T\ Closes Eyes/Registration Scheduling Specialist) - 0(Both) 2. Best Gaze (Lateral Gaze Paresis) - 0(Normal) 3. Visual Field Loss - 0(No visual loss) 4. Facial Palsy - 0(Normal) 5a. Left Arm: Motor (10-second hold) - 0(No drift) 5b. Right Arm: Motor (10-second hold) - 0(No drift) 6a. Left Leg: Motor (5-second hold - always test supine) - 0(No drift) 6b. Right Leg: Motor (5-second hold - always test supine) - 0(No drift) 7. Limb Ataxia (finger/nose \T\ heel/tejada - test with eyes open) - 0(Absent) 8. Sensory Loss (pinprick arms/legs/face) - 0(Normal) 9. Best Language: Aphasia (description/naming/reading) - 0(No aphasia) Initials: ember Signatures: Dispatcher [employer] Nura Murrell MD MD cha Calderon, Audri, RN RN aa5 Guanaco Morales, RN RN rs5
--- NOTE | 2023-07-04 11:46 | RAD REPORT ---
EXAM DESCRIPTION: USCarotid Artery Kgdptojjp85/3/2023 10:57 am CLINICAL HISTORY: Dizziness COMPARISON: 2014 FINDINGS: The velocity of the right internal carotid artery equals 74 cm/sec. The right ICA/CCA rati o normal The velocity of the left internal carotid artery equals 87 cm/sec. The left ICA/CCA ratio normal Mild plaque is present within the carotid arteries. The vertebral arteries demonstrate antegrade flow IMPRESSION: Mild plaque within the carotid arteries without evidence of a hemodynamically significan t stenosis NASCET criteria used. Mild 0-49% stenosis Moderate 50-69% stenosis Severe 70-99% stenosis
--- NOTE | 2023-07-04 11:46 | ER ---
Nurse's Notes [facility] [place] Name: Lynn Max Age: 83 yrs Sex: Female : 1940 Arrival Date: 07/04/2023 Time: 09:41 Bed 2 Private MD: Salvador Maxwell Diagnosis: Dizziness and giddiness;Weakness;Pneumonia due to other specified bacteria Presentation: 07/04 09:46 Chief complaint: Patient states: dizziness since yesterday. Denies any weakness, denies aa5 nausea/vomiting, denies recent illness. 09:46 Coronavirus screen: At this time, the client does not indicate any symptoms associated aa5 with coronavirus-19. Ebola Screen: Patient denies travel to an Ebola-affected area in the 21 days before illness onset. Initial Sepsis Screen: Does the patient meet any 2 criteria? No. Patient's initial sepsis screen is negative. Does the patient have a suspected source of infection? No. Patient's initial sepsis screen is negative. Risk Assessment: Do you want to hurt yourself or someone else? Patient reports no desire to harm self or others. Onset of symptoms was July 2023. 09:46 Acuity: KRYS 3 aa5 09:46 Method Of Arrival: Ambulatory aa5 Historical: - Allergies: 09:57 Codeine; aa5 - Home Meds: 10:00 amlodipine 5 mg tablet [Active]; pravastatin 80 mg oral tablet [Active]; omeprazole aa5 20mg oral tablet, delayed release (enteric coated) [Active]; alendronate 70 mg oral tablet every week [Active]; ferrous sulfate 325 mg (65 mg iron) oral tablet [Active]; calcium [Active]; Vitamin D3 oral [Active]; Aspirin 81mg Oral [Active]; Warren-3 oral [Active]; garlic oral [Active]; - PMHx: 09:57 Hypertensive disorder; Osteoporosis; Hypercholesterolemia; aa5 - Immunization history:: Adult Immunizations unknown. - Social history:: Smoking status: Patient denies any tobacco usage or history of. - Family history:: not pertinent. Screenin:50 [facility] ED Fall Risk Assessment (Adult) History of falling in the last 3 months, rs5 including since admission No falls in past 3 months (0 pts) Confusion or Disorientation No (0 pts) Intoxicated or Sedated No (0 pts) Impaired Gait No (0 pts) Mobility Assist Device Used Yes (1 pt) Altered Elimination No (0 pt) Score/Fall Risk Level 0 - 2 = Low Risk Oriented to surroundings, Maintained a safe environment. Abuse screen: Denies threats or abuse. Nutritional screening: No deficits noted. Tuberculosis screening: No symptoms or risk factors identified. Assessment: 09:50 General: Appears in no apparent distress. comfortable, Behavior is calm, cooperative. rs5 Pain: Denies pain. Neuro: Level of Consciousness is awake, alert, obeys commands, Oriented to person, place, time, situation, Lead Burner Apprentice are equal bilaterally Moves all extremities. Gait is steady, Speech is normal, Facial symmetry appears normal, Pupils are PERRLA, Pupil Size: 3 mm Intact Reports dizziness, since 07/03/23. Cardiovascular: Denies chest pain, Heart tones S1 S2 present Rhythm is regular. Respiratory: Airway is patent Respiratory effort is even, unlabored, Respiratory pattern is regular, symmetrical, Breath sounds are clear bilaterally. GI: Abdomen is round non-distended, Bowel sounds present X 4 quads. Abd is soft and non tender X 4 quads. Patient currently denies nausea, vomiting. : No signs and/or symptoms were reported regarding the genitourinary system. EENT: No signs and/or symptoms were reported regarding the EENT system. Derm: No signs and/or symptoms reported regarding the dermatologic system. Musculoskeletal: Range of motion: intact in all extremities. 10:49 Reassessment: Patient and/or family updated on plan of care and expected duration. Pain rs5 level reassessed. Patient is alert, oriented x 3, equal unlabored respirations, skin warm/dry/pink. 11:51 Reassessment: pt passed PO challenge. ERP notified. mb9 12:46 Reassessment: Patient and/or family updated on plan of care and expected duration. Pain rs5 level reassessed. Patient is alert, oriented x 3, equal unlabored respirations, skin warm/dry/pink. Vital Signs: 09:46 BP 137 / 95; Pulse 74; Resp 16 S; Temp 98(TE); Pulse Ox 95% on R/A; Weight 65.32 kg aa5 (R); Height 5 ft. 2 in. (R); 09:50 BP 137 / 95; Pulse 69; Resp 17; Temp 98.1(O); Pulse Ox 99% on R/A; rs5 10:50 BP 121 / 72; Pulse 66; Resp 18; Pulse Ox 99% on R/A; rs5 12:28 BP 125 / 77; Pulse 70; Resp 18; Pulse Ox 99% on R/A; rs5 09:46 Body Mass Index 26.34 (65.32 kg, 157.48 cm) aa5 NIH Stroke Scale Scores: 11:20 NIHSS Score: 0 ember ED Course: 09:44 Patient arrived in ED. mr 09:44 Salvador Maxwell MD is Private Physician. mr 09:46 Arm band placed on. aa5 09:48 Guanaco Morales, RN is Primary Nurse. rs5 09:48 Nura Díaz MD is Attending Physician. ember 09:50 Patient has correct armband on for positive identification. Placed in gown. Bed in low rs5 position. Call light in reach. Side rails up X2. 09:59 Triage completed. aa5 10:07 Inserted saline lock: 20 gauge in left antecubital area, using aseptic technique. Blood rs5 collected. 10:27 CT Head Brain wo Cont In Process Unspecified. EDMS 10:46 XRAY Chest (1 view) In Process Unspecified. EDMS 10:59 US Carotid Artery Bilateral In Process Unspecified. EDMS 11:45 Salvador Maxwell MD is Referral Physician. ember 11:50 Inserted saline lock: 20 gauge in left forearm, using aseptic technique. rs5 12:28 No provider procedures requiring assistance completed. rs5 12:46 IV discontinued, intact, bleeding controlled, No redness/swelling at site. Pressure rs5 dressing applied. Administered Medications: 10:10 Drug: NS 0.9% IV 500 ml IV at bolus once Route: IV; Rate: bolus; Site: left antecubital;rs5 10:30 Follow up: Response: No adverse reaction rs5 10:10 Drug: NS 0.9% IV 1000 ml IV at 125 ml/hr continuous Route: IV; Rate: 125 ml/hr; Site: rs5 left antecubital; 10:25 Follow up: Response: No adverse reaction rs5 11:55 Drug: Rocephin IV 1 grams IV at per protocol once; Given slow IV push per pharmacy rs5 instructions Route: IV; Rate: per protocol; Site: left antecubital; 12:20 Follow up: Response: No adverse reaction rs5 11:55 Drug: Amoxicillin-Clavulanate PO 875 mg PO once Route: PO; rs5 12:20 Follow up: Response: No adverse reaction rs5 Medication: 10:51 VIS not applicable for this client. rs5 Outcome: 11:45 Discharge ordered by . [facility] 12:46 Discharged to home via wheelchair, rs5 12:46 Condition: stable 12:46 Discharge instructions given to patient, family, Instructed on discharge instructions, follow up and referral plans. medication usage, Demonstrated understanding of instructions, follow-up care, medications, Prescriptions given X 1, 12:47 Patient left the ED. rs5 NIH Stroke Scale - NIH Stroke Score Date: 07/04/2023 Time: 11:20 Total Score = 0 10. Dysarthria (speech clarity - read or repeat words) - 0(Normal) 11. Extinction and Inattention (visual/tactile/auditory/spatial/personal) - 0(No abnormality) 1a. Level of Consciousness (LOC) - 0(Alert) 1b. Level of Consciousness (LOC) (Month \T\ Age) - 0(Both) 1c. LOC Commands (Open \T\ Closes Eyes/Contract Coordinator) - 0(Both) 2. Best Gaze (Lateral Gaze Paresis) - 0(Normal) 3. Visual Field Loss - 0(No visual loss) 4. Facial Palsy - 0(Normal) 5a. Left Arm: Motor (10-second hold) - 0(No drift) 5b. Right Arm: Motor (10-second hold) - 0(No drift) 6a. Left Leg: Motor (5-second hold - always test supine) - 0(No drift) 6b. Right Leg: Motor (5-second hold - always test supine) - 0(No drift) 7. Limb Ataxia (finger/nose \T\ heel/tejada - test with eyes open) - 0(Absent) 8. Sensory Loss (pinprick arms/legs/face) - 0(Normal) 9. Best Language: Aphasia (description/naming/reading) - 0(No aphasia) Initials: [facility] Signatures: Dispatcher [employer] Nura Murrell MD MD cha Rivera, Mary, Reg Reg mr Sarita Rendon, RN RN aa5 Kaykay Bull RN RN mb9 Guanaco Morales, RN RN rs5 Corrections: (The following items were deleted from the chart) 12:26 12:25 Amoxicillin-Clavulanate PO 875 mg PO rs5 rs5
[2023-07-04] MEDS ORDERED: CEFTRIAXONE 1000 MG/VIAL ONE (12:07)
[2023-07-04] MEDS ORDERED: AMOX/K CLAV 875 MG TAB ONE (12:07)
[2023-07-04 13:25] VITALS: TEMP 98.1; O2SAT 99
[2023-07-04 13:36] VITALS: BP 125/77
--- NOTE | 2023-07-06 13:36 | EKG ---
Test Date: 2023-07-04 Test Time: 10:09:51 Director Child: PARESH MEASUREMENT RESULTS: Intervals: Rate: 67 WI: 152 QRSD: 72 QT: 396 QTc: 418 Deweese: P: 52 WI: 152 QRS: 50 T: 50 INTERPRETIVE STATEMENTS: Sinus rhythm with premature atrial complexes Low voltage QRS Borderline ECG Compared to ECG 11/05/2022 12:28:03 Atrial premature complex(es) now present Sinus arrhythmia no longer present Electronically Signed On 07-06-23 13:29:12 WIRELESS NETWORK ENGINEER by Cortez Valdez
== END 2023-07-04 12:47 | disposition home or self-care (01) ==
LOC: ER 09:41
DX: J15.8 Pneumonia due to other specified bacteria (principal); R53.1 Weakness; I10 Essential (primary) hypertension; Z88.5 Allergy status to narcotic agent; Z79.82 Long term (current) use of aspirin
CPT/HCPCS: 93005; 87040 ×2; 85025; 81001; 80048; 36415; 83735; 85610; 80076; 84484; 83690; 83880; 70450; 71045; 93880; 96374; 99284; J7040; J7030; J0696

== ENCOUNTER 2025-04-30 07:51 | Emergency (ER) | payer OTHER ==
--- OUTSIDE RECORDS SUMMARY | 2025-04-30 07:55 | XMS REPORT | Clinical Summary ---
Author Name Unknown Organization [facility] Address [address] [place] [address] Care Team Providers Care Rn Oncology Research Name Role Phone Conchis Rodney MD Unavailable [phone] Salvador Maxwell MD Primary Care Provider [phone] Kyle Leija MD Primary Care Provider [phone] Allergies Active Allergy Reactions Criticality Noted Date Comments Codeine Itching,Rash Low 03/27/2019 Medications * This document contains information received from the source organization and may not represent a complete record from that organization. pravastatin (PRAVACHOL) 80 mg tablet daily. Active omeprazole (PriLOSEC) 20 mg capsule daily. 3 11/14/2018 Active atenolol (TENORMIN) 25 mg tablet daily. Active amLODIPine (NORVASC) 5 mg tablet daily. Active aspirin 81 mg EC tablet Take 1 tablet (81 mg) by mouth daily. Active calcium carbonate/vitam in D3 (CALTRATE 600 + D ORAL) Take by mouth daily. Active cholecalciferol , vitamin D3, 400 units tablet Take 1 tablet (400 Units) by mouth daily. Active cyanocobalamin (VITAMIN B-12) 1000 mcg tablet Take 1 tablet (1,000 mcg) by mouth daily. Active omega-3 acid ethyl esters (LOVAZA) 1 g capsule Take 1 capsule (1 g) by mouth daily. Active garlic 1 mg cap Take by mouth daily. Active flaxseed powd Take by mouth daily. Active ferrous sulfate 325 mg (65 mg elemental iron per tablet) tablet Take 1 tablet (325 mg) by mouth daily. Active alendronate (FOSAMAX) 70 mg tablet Take 1 tablet (70 mg) by mouth once a week. Active Active Problems Problem Noted Date Diagnosed Date Skin lesion 07/15/2020 Pulmonary nodules 01/08/2020 History of malignant neoplasm of ovary 0 Encounter for examination pr ior to antineoplastic chemotherapy 05/22/2019 Constipation 05/08/2019 H/O: cardiovascular disease 04/14/2019 Hypertension 04/14/2019 Gastroesophageal reflux disease 04/14/2019 Encounter for other preprocedural examination Overview (04/13/2019): Lynn yung Oca is a 79 y.o. female who presents to POEM service for risk assessment and medical optimization prior to surgery. Surgical and Procedural Summary Future Procedures (Tomorrow to 05/13/2019) Date Time Procedures Providers Location Status 04/14/2019 1015 Complete Abdominal HysterectomyOophorectomy, Partial Or Total, Unilateral Or BilateralLimited Lymphadenectomy For Staging; Pelvic And Para- Aortic Lymph NodesResection (Initial) Of Ovarian, Tubal, Or Peritoneal Malignancy With Radical Dissection For Debulking (psb) Kyle Leija OR Scheduled Open case Proj Length(mins): 345 Malignant neoplasm of ovary 03/30/2019 Cancer Staging:Clinical stage from 04/14/2019:Stage IIB(Primary) - Signed by Kyle Leija MD on 05/08/2019 Edema of foot 03/28/2019 Osteoporosis 03/23/2019 Abdominal or pelvic swelling , mass, or lump, left lower quadrant 03/23/2019 Elevated cancer antigen 125 (CA 125) 03/23/2019 Encounters Date Type Department Care Team Description 01/29/2025 12:30 PM CDT Ancillary Procedure [facility] [address] [address] [facility] [address] [place] [address] Candida Rao PA History of malignant neoplasm of ovary 01/29/2025 Travel 01/24/2025 Orders Only [facility] [place] [facility] [address] [place] [address] Candida Rao PA History of malignant neoplasm of ovary (Primary Dx) 01/24/2025 Results Follow-Up Gynecologic Oncology Center [address] [facility], 6th [place] [address] Kyle Leija MD Cancer Antigen 125 12/04/2024 10:30 AM CDT Follow-Up MD [facility] in [address] [address] Kyle Leija MD History of malignant neoplasm of ovary; Malignant neoplasm of unspecified ovary; Pulmonary nodules 12/04/2024 Travel 06/05/2024 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 Follow-Up MD [facility] in [address] [address] Yuan Cortes MD Unke, Jenna, PA Malignant neoplasm of unspecified ovary (Primary Dx); History of malignant neoplasm of ovary; Pulmonary nodules 06/05/2024 12:15 PM BRANCH SERVICE LEADER Ancillary Procedure [facility] at [place] [address] [facility] [address] [place] [address] Mesha Salazar PA Malignant neoplasm of unspecified ovary 06/05/2024 Travel after 04/30/2024 Surgical History Surgery Date Site/Laterality Comments COLONOSCOPY February 17, 2018 UPPER GASTROINTESTINAL ENDOSCOPY Mar 12, 2015 VA COLECTOMY PRTL W/COLOPROCTOSTOMY 04/14/2019 Abdomen/N/A Procedure: PARTIAL COLECTOMY WITH COLOPROCTOSTOMY (LOW PELVIC ANASTOMOSIS); Surgeon: Kyle Leija MD; Location: MAIN OR; Service: [facility] - GYNECOLOGIC ONCOLOGY VA BSO W/OMENTECTOMY NORMA&RAD DEBULKING DISSECTION 04/14/2019 Abdomen/N/A Procedure: NORMA/BSO WITH OMENTECTOMY AND RADICAL DISSECTION FOR DEBULKING; Surgeon: Kyle Leiaj MD; Location: MAIN OR; Service: [facility] - GYNECOLOGIC ONCOLOGY VA PELVIC EXAMINATION W/ANESTHESIA OTHER THAN LOCAL 04/14/2019 Vagina /N/A Procedure: PELVIC EXAMINATION UNDER ANESTHESIA; Surgeon: Kyle Leija MD; Location: MAIN OR; Service: [facility] - GYNECOLOGIC ONCOLOGY Medical History Medical History Date Comments Hypertension Aug 2017 Hyperlipidemia Aug 2016 Gastric reflux Aug 2016 Herpes zoster Aug 2016 Family History Medical History Relation Name Comments -Pancreatic cancer Brother Estuardo Palma 2006 Relation Name Status Comments Brother Estuardo Palma Social History Tobacco Use Types Packs/Day Years Used Date Smoking Tobacco: Former Cigarettes 0.3 10 1 960 - 08/02/1969 Smokeless Tobacco: Never Alcohol Use Standard Drinks/Week Comments Yes 0 (1 standard drink = 0.6 oz pur e alcohol) Per day 5 days a week Comments No Sex and Gender Information Value Date Recorded Sex Assigned at Not on file Legal Sex Female 4:15 PM CDT Gender Identity Not on file Sexual Orientation Not on file Obstetrics History Para Term AB IAB SAB Ectopic Multiple Livin g Live Births 2 2 Date Outcome GA Total Labor Labor/2nd/3rd Weight Sex Type Anes PTL [place] A1 A5 Name Clin Para Para Comments 2 normal vaginal deliveries. Largest baby= 9lbs 2ounces Last Filed Vital Signs Vital Sign Reading Time Taken Comments Blood Pressure 123/78 12/04/2024 9:59 AM CDT Pulse 71 12/04/2024 9:59 AM CDT Temperature 36.8 °C (98.2 °F) 12/04/2024 9:59 AM CD T Respiratory Rate 17 12/04/2024 9:59 AM CDT Oxygen Saturation - - Inhaled Oxygen Concentration - - Weight 67.1 kg (147 lb 14.9 oz) 12/04/2024 9:59 AM CDT Height 152 cm (4' 11.84") 06/05/2024 3:29 PM BRANCH SERVICE LEADER Body Mass Index 29.04 06/05/2024 3:29 PM BRANCH SERVICE LEADER Plan of Treatment Upcoming Encounters Date Type Department Care Team (Late st Contact Info) Description 06/04/2025 9:00 AM BRANCH SERVICE LEADER Lab MD [facility] [place] [facility] [address] [place] [address] [address] [place] [address] Valorie Kingsley, BRI [address] [place] [id number] [email or web address] 06/04/2025 9:30 AM BRANCH SERVICE LEADER Follow-Up MD [facility] in [place] [facility] [address] [place] [id number] Kyle Leija MD [address] [place] [address] [email or web address] Health Maintenance Due Date Last Done Comments Pneumococcal Vaccine: 50+ Ye ars (1 of 1 - PCV) 1990 COVID-19 Vaccine ( season) 2025 08/07/2021, 10/02/2020, 09/06/2020 Influenza Vaccine (#1) 2025 07/11/2021 Procedures Procedure Name Priority Date/Time Associated Diagnosis Comments CT CHEST ABDOMEN PELVIS W CONTRAST Routine 01/29/2025 2:00 PM CDT History of malignant neoplasm of ovary POC CREATININE Routine 01/29/2025 12:59 PM CDT CANCER ANTIGEN 125 Routine 01/22/2025 9: 10 AM CDT History of malignant neoplasm of ovary CANCER ANTIGEN 125 Routine 12/04/2024 9: 40 AM CDT History of malignant neoplasm of ovary Malignant Neoplasm Of Unspecified Ovary Pulmonary nodules CT CHEST ABDOMEN PELVIS W CONTRAST Routine 06/05/2024 2:08 PM BRANCH SERVICE LEADER Malignant neoplasm of unspecified ovary POC CREATININE Routine 06/05/2024 1:31 PM BRANCH SERVICE LEADER CANCER ANTIGEN 125 Routine 06/05/2024 1: 30 PM BRANCH SERVICE LEADER Malignant neoplasm of unspecified ovary after 04/30/2024 Results * CT Chest Abdomen Pelvis with Contrast (01/29/2025 2:00 PM CDT) Only the most recent of2 resultswithin the time period is included. Anatomical Region Laterality Modality Abdomen, Pelvis, Chest Computed Tomography 01/31/2025 2:00 PM CDT Impressions 01/31/2025 2:23 PM CDT There is no CT evidence of recurrent or metastatic disease in the chest, abdomen or pelvis. ACTIONABLE ITEMS/RECOMMENDATIONS*: None. *An Actionable Finding is a finding that may be unrelated to the original reason for imaging but potentially actionable, meaning further investigation may be necessary. The Actionable Findings Vigilance Unit (AFVU) assists medical providers with responding to additional radiologic findings that are unexpected and potentially actionable. Narrative 01/31/2025 2:23 PM CDT FULL RESULT: Examination: CT CHEST ABDOMEN PELVIS W CONTRAST on 01/29/2025 2:00 PM. Clinical History: History of malignant neoplasm of ovary. Indication: Evaluate disease status for subsequent treatment strategy. Comparison: CT chest abdomen and pelvis 06/05/2024. Technique: CT CHEST ABDOMEN PELVIS W CONTRAST. Findings: Chest: There are no new or enlarging lymph nodes seen in the chest. Chronic bronchiectatic changes in the right middle lobe are again seen. Scattered subcentimeter nodules are unchanged since previous and nonspecific. There are a few scattered patchy nodular opacities that appear infectious or inflammatory and may be followed. Abdomen and pelvis: There are no suspicious liver lesions. The gallbladder is unremarkable. There is no biliary obstruction. The spleen is not enlarged. The pancreas and adrenal glands are unremarkable. The kidneys function without hydronephrosis. The urinary bladder is incompletely distended. No recurrent masses are seen in the pelvis. There is no ascites. Visualized bowel loops are of normal caliber obstruction. There our no new or enlarging lymph nodes seen. The visualized osseous structures are unremarkable. Procedure Note Bridget Marie MD - 01/31/2025 FULL RESULT: Examination: CT CHEST ABDOMEN PELVIS W CONTRAST on 01/29/2025 2:00 PM. Clinical History: History of malignant neoplasm of ovary. Indication: Evaluate disease status for subsequent treatment strategy. Comparison: CT chest abdomen and pelvis 06/05/2024. Technique: CT CHEST ABDOMEN PELVIS W CONTRAST. Findings: Chest: There are no new or enlarging lymph nodes seen in the chest. Chronic bronchiectatic changes in the right middle lobe are again seen.Scattered subcentimeter nodules are unchanged since previous andnonspecific. There are a few scattered patchy nodular opacities thatappear infectious or inflammatory and may be followed. Abdomen and pelvis: There are no suspicious liver lesions. The gallbladder is unremarkable.There is no biliary obstruction. The spleen is not enlarged. The pancreas and adrenal glands are unremarkable. The kidneys function without hydronephrosis. The urinary bladder isincompletely distended. No recurrent masses are seen in the pelvis. There is no ascites. Visualized bowel loops are of normal caliber obstruction. There our no new or enlarging lymph nodes seen. The visualized osseous structures are unremarkable. IMPRESSION: There is no CT evidence of recurrent or metastatic disease in the chest,abdomen or pelvis. ACTIONABLE ITEMS/RECOMMENDATIONS*: None. *An Actionable Finding is a finding that may be unrelated to the originalreason for imaging but potentially actionable, meaning furtherinvestigation may be necessary. The Actionable Findings Vigilance Unit(AFVU) assists medical providers with responding to additional radiologicfindings that are unexpected and potentially actionable. Candida PECK [facility] [place]LES Final Result * POC Creatinine (01/29/2025 12:59 PM CDT) Only the most recent of2 resultswithin the time period is included. POC Creatinine 0.8 0.6 - 1.3 mg/dL 01/29/2025 1:02 PM CDT [facility] - DIAGNOSTIC IMAGING Comment:Medications, especia lly hydroxyurea or supplements, such as ascorbate, can interfere with test results causing a falsely and significantly higher result than expected. If a problem is suspected with a patient's result, a sample should be sent to the laboratory for confirmatory testing. POC eGFR 73 >=60 mL/min/1.7 3 sq. m 01/29/2025 1:02 PM CDT [facility] - DIAGNOSTIC IMAGING Comment: The eGFRcr is calculated with the 2020 CKD-EPI creatinine equation using creatinine, patient's age, and sex for adults 18 years of age and older. Other factors, especially muscle mass, may affect accuracy and need to be considered. According to the Kidney Disease: Improving Global Outcomes (KDIGO) CKD Work Group 2012 Clinical Practice Guideline, chronic kidney disease (CKD) is defined as the abnormalities of kidney structure or function, present for more than 3 months, with implications for health. CKD should be classified by cause, GFR category, and albuminuria category. KDIGO guidelines provide the following GFR categories. Stage / Description / GFR mL/min/1.73 m2: G1* / Normal or high / >= 90 G2* / Mildly decreased / 60-89 G3a / Mildly to moderately decreased / 45-59 G3b / Moderately to severely decreased / 30-44 G4 / Severely decreased / 15-29 G5 / Kidney failure / <15 *In the absence of evidence of kidney damage, neither G1 nor G2 fulfill criteria for CKD. Blood 01/29/2025 12:5 9 PM CDT 01/29/2025 1:02 PM CDT [facility] - DIAGNOSTIC IMAGING - 01/29/2025 1:02 PM CDT Method description: The i-STAT is an analyzer used for in vitro quantification of various analytes in whole blood. The device uses a single disposable cartridge which contains microfabricated sensors, a calibration solution, fluidics system, and a waste chamber. Each test cartridge contains chemically sensitive biosensors on a silicon chip that are configured to perform specific tests. The microfabricated sensors measure analyte concentration by an electrochemical assay. us Candida PECK POCT ORDERABLES - DEVICE Final R esult [facility] - DIAGNOSTIC IMAGING [facility] [address] [address] [facility], [address] [place] [address], [place] * (ABNORMAL) Cancer Antigen 125 (01/22/2025 9:10 AM CDT) Only the most recent of3 resultswithin the time period is included. Cancer Antigen 125 54.8(H) <=38.0 U/mL 01/22/2025 11:33 AM CDT [place] Blood Peripheral blood specimen / Unknown Venipuncture / Unknown 01/22/2025 9:10 AM CDT 01/22/2025 9:12 AM CDT Narrative [place] - 01/22/2025 11:33 AM CDT Results greater than 11,500.0 U/mL may not be reliable due to matrix effect with extended dilution as it exceeds the sharepoint application architect's recommended limit. Caution should be exercised when interpreting such values and done in conjunction with clinical context. This test is measured by electrochemiluminescence immunoassay on [employer] immunoassay analyzers. Results obtained in different methods are not interchangeable. Reference intervals are not available for male patients. Results should be interpreted in conjunction with clinical context. 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 Advance Directives: Living Will 03/30/2019 Directive to Physici ans and Family or Surrogates-Living Will Advance Directives: Medical Power of Agency Legal Counsel 03/30/2019 Medical Power of Att orney * Full Code (Latest Code Status on File) Date Activated Date Inactivated Comments 01/22/2025 9:09 AM Update based o n Advanced Directive Documentation * Full Code Date Activated Date Inactivated Comments 04/14/2019 5:17 PM 04/18/2019 2:52 PM Care Teams Rn Oncology Research Relationship Specialty Start Date End Date Conchis Rodney MD [email or web address] PCP - External Referring Obstetrics/Gynecology 03/15/19 Salvador Maxwell MD [address] [place] [address] [email or web address] PCP - General Family Practice 10/06/21 12/03/24 Kyle Leija MD [address] [place] [address] [email or web address] PCP - General Gynecological Oncology 12/04/24
[2025-04-30 08:33] LABS: Absolute Lymphocytes (CBC) 1.7 K/uL (0.7-4.9); Hematocrit 41.2 % (36.0-45.0); Hemoglobin 13.8 g/dL (12.0-15.0); MCH 30.6 pg (27.0-35.0); MCHC 33.4 g/dL (32.0-36.0); MCV 91.6 fL (80-100); MPV 8.5 fL (7.6-11.3); Nucleated RBC Absolute Count 0.0 (0-0); Nucleated Red Blood Cells % 0.0 % (0-0); RBC Red Blood Cell Count 4.50 M/uL (3.86-4.86); White Blood Count 6.00 thou/uL (4.3-10.9)
[2025-04-30 08:38] LABS: Sqamous Epithelial <5 /HPF (None Seen); Urine Culture Reflex Order NOT NEEDED; Urine Microscopic Reflex YN ORDER UMIC
[2025-04-30 08:41] LABS: PT Prothrombin Time 12.4 SECONDS (10-13.0); Protime INR 1.1
[2025-04-30 08:48] LABS: Influenza A Ag Negative; Influenza B Ag Negative; SARS-CoV-2 Antigen Rapid Res Negative (Negative)
[2025-04-30 08:52] LABS: ALT/SGPT 30 U/L (13-56); AST/SGOT 23 U/L (15-37); Albumin 3.7 g/dL (3.4-5.0); Albumin/Globulin Ratio 1.2 (1.1-1.8); Alkaline Phosphatase 73 U/L (45-117); Anion Gap 8.2 mEq/L (5.0-15.0); BUN Blood Urea Nitrogen 15 mg/dL (7-18); Globulin 3.0 g/dL (2.3-3.5); Glucose Level 98 mg/dL (74-106); Magnesium 2.0 mg/dL (1.6-2.4); NT PRO-BNP 262 pg/mL (<450); Potassium 4.2 mEq/L (3.5-5.1); Troponin High Sensitivity 5.6 pg/mL (<58.9)
[2025-04-30 08:54] LABS: Bilirubin Indirect, Calculated 0.3 mg/dL (0.2-0.8)
[2025-04-30] MEDS ORDERED: NA CHLORIDE 0.9% 500 ML ONE (09:12)
--- NOTE | 2025-04-30 09:30 | EDPHYS ---
Physician Documentation [facility] Name: Lynn Max Age: 85 yrs Sex: Female : 1940 Arrival Date: 04/30/2025 Time: 07:51 Bed 15 Private MD: ED Physician Wesley Hardin HPI: 04/30 08:12 This 85 yrs old Female presents to ER via Ambulatory with complaints of sp3 Jittery. 08:12 85-year-old female with history of hyperlipidemia, osteoporosis, hypertension, presents sp3 to the ED with chief complaint generalized weakness and jitteriness. Patient states that the last time this has happened she had a UTI. She denies fever but does endorse cough and congestion. She denies chest pain, back pain, abdominal pain, syncope, vomiting or diarrhea, or any other signs or symptoms on ROS at this time.. Historical: - Allergies: 08:04 Codeine; ss - PMHx: 08:04 Hypercholesterolemia; Osteoporosis; Hypertensive disorder; ss - Immunization history:: Adult Immunizations not up to date. - Infectious Disease History:: Denies. - Social history:: Smoking status: Patient denies any tobacco usage or history of. ROS: 08:15 Constitutional: Negative for fever, chills, and weight loss, Eyes: Negative for injury, sp3 pain, redness, and discharge, ENT: Negative for injury, pain, and discharge, Neck: Negative for injury, pain, and swelling, Cardiovascular: Negative for chest pain, palpitations, and edema, Abdomen/GI: Negative for abdominal pain, nausea, vomiting, diarrhea, and constipation, Back: Negative for injury and pain, MS/Extremity: Negative for injury and deformity, Skin: Negative for injury, rash, and discoloration, Neuro: Negative for headache, weakness, numbness, tingling, and seizure, Psych: Negative for depression, anxiety, suicide ideation, homicidal ideation, and hallucinations, Allergy/Immunology: Negative for hives, rash, and allergies, Endocrine: Negative for neck swelling, polydipsia, polyuria, polyphagia, and marked weight changes, Hematologic/Lymphatic: Negative for swollen nodes, abnormal bleeding, and unusual bruising, 08:15 All other systems are negative, Exam: 08:16 Constitutional: This is a well developed, well nourished patient who is awake, alert, sp3 and in no acute distress. Head/Face: Normocephalic, atraumatic. Eyes: Pupils equal round and reactive to light, extra-ocular motions intact. Lids and lashes normal. Conjunctiva and sclera are non-icteric and not injected. Cornea within normal limits. Periorbital areas with no swelling, redness, or edema. ENT: Nares patent. No nasal discharge, no septal abnormalities noted. External auditory canals are clear. Oropharynx with no redness, swelling, or masses, exudates, or evidence of obstruction, uvula midline. Mucous membranes moist. Neck: Trachea midline, no thyromegaly or masses palpated, and no cervical lymphadenopathy. Supple, full range of motion without nuchal rigidity, or vertebral point tenderness. No Meningismus. Chest/axilla: Normal chest wall appearance and motion. Nontender with no deformity. No lesions are appreciated. Cardiovascular: Regular rate and rhythm with a normal S1 and S2. No gallops, murmurs, or rubs. Normal PMI, no JVD. No pulse deficits. Abdomen/GI: Soft, non-tender, with normal bowel sounds. No distension or tympany. No guarding or rebound. No evidence of tenderness throughout. Back: No spinal tenderness. No costovertebral tenderness. Full range of motion. Skin: Warm, dry with normal turgor. Normal color with no rashes, no lesions, and no evidence of cellulitis. MS/ Extremity: Pulses equal, no cyanosis. Neurovascular intact. Full, normal range of motion. Neuro: Awake and alert, GCS 15, oriented to person, place, time, and situation. Cranial nerves II-XII grossly intact. Motor strength 5/5 in all extremities. Sensory grossly intact. Cerebellar exam normal. Normal gait. Psych: Awake, alert, with orientation to person, place and time. Behavior, mood, and affect are within normal limits. 08:16 Respiratory: Mild cough noted., 08:33 ECG was reviewed by the Attending Physician. EKG demonstrates normal sinus rhythm at 66 sp3 bpm with normal intervals, normal QRS, normal axis, nonspecific diffuse ST/T changes without evidence of acute ischemia. Vital Signs: 08:03 BP 143 / 75; Pulse 75; Resp 15; Temp 98.5(O); Pulse Ox 99% on R/A; Weight 68.04 kg; ss Height 5 ft. 2 in. ; Pain 0/10; 09:00 BP 126 / 63; Pulse 68; Resp 17; Pulse Ox 97% on R/A; Pain 0/10; ar8 10:00 BP 139 / 67; Pulse 64; Resp 15; Pulse Ox 98% on R/A; Pain 0/10; ar8 08:03 Body Mass Index 27.44 (68.04 kg, 157.48 cm) ss 08:03 Pain Scale: Adult ss 09:00 Pain Scale: Adult ar8 10:00 Pain Scale: Adult ar8 MDM: 07:57 Medical Screening Exam initiated sp3 08:16 Data reviewed: vital signs, nurses notes, old medical records, lab test result(s), sp3 radiologic studies. ED course: 85-year-old female with PMH above now with vague symptoms of jitteriness and general fatigue. Differential diagnosis includes viral illness, influenza, COVID-19, UTI, pneumonia, electrolyte abnormality, dehydration, and to a lesser degree ACS or other similar pathway. Vital signs are normal patient is in no acute distress. Workup will include chest x-ray, general labs, EKG, swabs, UA. Disposition pending workup and patient course.. 08:59 ED course: Full workup negative. Chest x-ray pending and I will review. Will give IV sp3 fluids as she is likely clinically dehydrated however blood work does not demonstrate any significant findings. Vital signs remain normal. She is to follow-up with her PCP. Patient with normal neurological exam and normal gait.. 09:28 ED course: I reviewed patient's chest x-ray. Right lower lobe lung findings are chronic sp3 in nature compared to prior studies. I do not believe patient has acute pneumonia.. 04/30 08:03 Order name: Basic Metabolic Panel; Complete Time: 08:56 sp3 04/30 08:03 Order name: CBC with Diff; Complete Time: 08:47 sp3 04/30 08:03 Order name: LFT's; Complete Time: 08:56 sp3 04/30 08:03 Order name: Magnesium; Complete Time: 08:56 sp3 04/30 08:03 Order name: NT PRO-BNP; Complete Time: 08:56 sp3 04/30 08:03 Order name: PT-INR; Complete Time: 08:47 sp3 04/30 08:03 Order name: Troponin HS; Complete Time: 08:56 sp3 04/30 08:03 Order name: COVID-19 Ag + Flu A+B Ag; Complete Time: 08:56 sp3 04/30 08:03 Order name: UA Rfx Tanner Cult if indicated; Complete Time: 08:47 sp3 04/30 08:03 Order name: XRAY Chest (1 view); Complete Time: 09:32 sp3 04/30 08:03 Order name: Cardiac monitoring; Complete Time: 08:33 sp3 04/30 08:03 Order name: EKG - Nurse/Tech; Complete Time: 08:33 sp3 04/30 08:03 Order name: IV Saline Lock; Complete Time: 08:33 sp3 04/30 08:03 Order name: Labs collected and sent; Complete Time: 08:33 sp3 04/30 08:03 Order name: O2 Per Protocol; Complete Time: 08:33 sp3 04/30 08:03 Order name: O2 Sat Monitoring; Complete Time: 08:33 sp3 Administered Medications: 09:16 Drug: NS 0.9% IV 500 ml 500 ml IV at 1 bolus once; to be given as a bolus over 30 ar8 minutes Volume: 500 ml; Route: IV; Rate: 1 bolus; Site: left forearm; 10:00 Follow up: Response: No adverse reaction; IV Status: Completed infusion; IV Intake: ar8 500ml Disposition Summary: 04/30/25 09:30 Discharge Ordered Notes: Location: Home sp3 Condition: Stable sp3 Diagnosis - Dehydration, near syncope sp3 Followup: sp3 - With: Private Physician - When: Upon discharge from the Emergency Department - Reason: Continuance of care Discharge Instructions: - Discharge Summary Sheet sp3 - Near-Syncope sp3 Forms: - Medication Reconciliation Form sp3 - Antibiotic Education sp3 - Prescription Opioid Use sp3 - Patient Portal Instructions sp3 - Leadership Thank You Letter sp3 Signatures: Dispatcher [employer] Latia Paul, FIORELLA RN ss Wesley Hardin MD MD sp3 Nirav Johns RN RN ar8 Corrections: (The following items were deleted from the chart) 08:03 08:03 BASIC METABOLIC PANEL+C.LAB.BRZ ordered. EDMS EDMS 08:03 08:03 CBC+H.LAB.BRZ ordered. EDMS EDMS 08:03 08:03 HEPATIC FUNCTION+C.LAB.BRZ ordered. EDMS EDMS 08:03 08:03 MAGNESIUM+C.LAB.BRZ ordered. EDMS EDMS 08:03 08:03 PROTIME (+INR)+COAG.LAB.BRZ ordered. EDMS EDMS 08:03 08:03 Troponin High Sensitivity+C.LAB.BRZ ordered. EDMS EDMS 08:03 08:03 COVID-19 Ag + Flu A+B Ag+I.LAB.BRZ ordered. EDMS EDMS 08:03 08:03 UA Rfx Tanner Cult if indicated+U.LAB.BRZ ordered. EDMS EDMS 08:04 08:03 Chest Single View+RAD.RAD.BRZ ordered. EDMS EDMS 08:37 08:03 [place] ordered. sp3 ar8 08:37 08:03 PROBNP+C.LAB.BRZ ordered. EDMS EDMS
--- NOTE | 2025-04-30 09:30 | ER ---
Nurse's Notes [facility] Name: Lynn Max Age: 85 yrs Sex: Female : 1940 Arrival Date: 04/30/2025 Time: 07:51 Bed 15 Private MD: Diagnosis: Dehydration, near syncope Presentation: 04/30 08:03 Chief complaint: Patient states: lightheaded and shaky x 3 days. Son reports that this ss occurred before a long time ago and was a UTI then. Coronavirus screen: Client denies travel out of the [place] in the last 14 days. Ebola Screen: Patient denies exposure to infectious person. Patient denies travel to an Ebola-affected area in the 21 days before illness onset. Initial Sepsis Screen: Does the patient meet any 2 criteria? No. Patient's initial sepsis screen is negative. Does the patient have a suspected source of infection? No. Patient's initial sepsis screen is negative. Risk Assessment: Do you want to hurt yourself or someone else? Patient reports no desire to harm self or others. Onset of symptoms was April 27, 2025. 08:03 Method Of Arrival: Ambulatory ss 08:03 Acuity: KRYS 3 ss Historical: - Allergies: 08:04 Codeine; ss - PMHx: 08:04 Hypercholesterolemia; Osteoporosis; Hypertensive disorder; ss - Immunization history:: Adult Immunizations not up to date. - Infectious Disease History:: Denies. - Social history:: Smoking status: Patient denies any tobacco usage or history of. Screenin:10 [facility] ED Fall Risk Assessment (Adult) History of falling in the last 3 months, ar8 including since admission No falls in past 3 months (0 pts) Confusion or Disorientation No (0 pts) Intoxicated or Sedated No (0 pts) Impaired Gait No (0 pts) Mobility Assist Device Used No (0 pt) Altered Elimination No (0 pt) Score/Fall Risk Level 0 - 2 = Low Risk Oriented to surroundings, Maintained a safe environment. Abuse screen: Denies threats or abuse. Nutritional screening: No deficits noted. Tuberculosis screening: No symptoms or risk factors identified. Assessment: 08:10 General: Appears in no apparent distress. Behavior is calm, cooperative. Pain: Denies ar8 pain. Neuro: Level of Consciousness is awake, alert, obeys commands, Oriented to person, place, time, situation, Sealing Machine Operator are equal bilaterally Moves all extremities. Full function Gait is steady, Speech is normal, Facial symmetry appears normal. Cardiovascular: Patient's skin is warm and dry. Rhythm is sinus rhythm. Respiratory: Airway is patent Respiratory effort is even, unlabored, Respiratory pattern is regular, symmetrical. GI: No signs and/or symptoms were reported involving the gastrointestinal system. : No signs and/or symptoms were reported regarding the genitourinary system. EENT: No signs and/or symptoms were reported regarding the EENT system. Derm: No signs and/or symptoms reported regarding the dermatologic system. Musculoskeletal: Reports feeling "jittery". 10:16 Reassessment: Patient's son requested that ERP assess patient's ears. Discharge pending ar8 ERP reassessment of patient. Vital Signs: 08:03 BP 143 / 75; Pulse 75; Resp 15; Temp 98.5(O); Pulse Ox 99% on R/A; Weight 68.04 kg; ss Height 5 ft. 2 in. ; Pain 0/10; 09:00 BP 126 / 63; Pulse 68; Resp 17; Pulse Ox 97% on R/A; Pain 0/10; ar8 10:00 BP 139 / 67; Pulse 64; Resp 15; Pulse Ox 98% on R/A; Pain 0/10; ar8 08:03 Body Mass Index 27.44 (68.04 kg, 157.48 cm) ss 08:03 Pain Scale: Adult ss 09:00 Pain Scale: Adult ar8 10:00 Pain Scale: Adult ar8 ED Course: 07:53 Patient arrived in ED. im 07:57 Nirav Johns, RN is Primary Nurse. ar8 07:57 Wesley Hardin MD is Attending Physician. sp3 08:04 Triage completed. ss 08:04 Arm band placed on right wrist. ss 08:10 Bed in low position. Call light in reach. Side rails up X2. Provided Education on: plan ar8 of care, diagnostics and estimated wait time. Client placed on continuous cardiac and pulse oximetry monitoring. NIBP monitoring applied. Warm blanket given. 08:10 No provider procedures requiring assistance completed. ar8 08:18 Inserted saline lock: 22 gauge in left forearm, using aseptic technique. Blood ar8 collected. Flushed with 10 mL NS. 08:18 Urine collected: clean catch specimen, cloudy, ang colored, sediment noted, EKG done, ar8 by ED staff, reviewed by Wesley Hardin MD. 08:37 UA Rfx Tanner Cult if indicated Sent. ar8 08:37 COVID-19 Ag + Flu A+B Ag Sent. ar8 08:37 Basic Metabolic Panel Sent. ar8 08:37 LFT's Sent. ar8 08:37 Magnesium Sent. ar8 08:37 PT-INR Sent. ar8 08:37 Troponin HS Sent. ar8 09:05 XRAY Chest (1 view) In Process Unspecified. EDMS 10:06 IV discontinued, intact, bleeding controlled, No redness/swelling at site. Pressure ar8 dressing applied. Administered Medications: 09:16 Drug: NS 0.9% IV 500 ml 500 ml IV at 1 bolus once; to be given as a bolus over 30 ar8 minutes Volume: 500 ml; Route: IV; Rate: 1 bolus; Site: left forearm; 10:00 Follow up: Response: No adverse reaction; IV Status: Completed infusion; IV Intake: ar8 500ml Medication: 08:10 VIS not applicable for this client. ar8 Intake: 10:00 IV: 500ml; Total: 500ml. ar8 Outcome: 09:30 Discharge ordered by . sp3 10:30 Discharged to home via wheelchair, ar8 10:30 Condition: stable 10:30 Discharge instructions given to patient, family, Instructed on discharge instructions, follow up and referral plans. Demonstrated understanding of instructions, follow-up care, 10:36 Patient left the ED. ar8 Signatures: Dispatcher [employer] EDLatia Klein, FIORELLA RN Wesley Grayson MD MD sp3 Denise Li Andrea, RN RN ar8 Corrections: (The following items were deleted from the chart) 08:37 08:37 PROBNP+C.LAB.BRZ drawn and sent. ar8 EDMS
--- NOTE | 2025-04-30 09:32 | RAD REPORT ---
EXAM: Chest Single View HISTORY: 85 years Female COUGH COMPARISON: 07/04/2023. FINDINGS: LUNGS/PLEURA: Chronic blunting of the right costophrenic angle with opacities at the medial right rachael g base that are similar to prior chest radiographs. Linear scarring in the right upper lobe. CARDIAC/MEDIASTINUM: The cardiac silhouette is within normal limits. Probable small hiatal hernia. UPPER ABDOMEN: No significant abnormality. BONES: No acute abnormality. LINES/TUBES/OTHER: N/A IMPRESSION: Chronic lung changes without superimposed process.
[2025-04-30 10:43] VITALS: TEMP 98.5
[2025-04-30 10:47] VITALS: BP 139/67; O2SAT 98
== END 2025-04-30 10:36 | disposition home or self-care (01) ==
LOC: ER 07:51
DX: E86.0 Dehydration (principal); R55 Syncope and collapse; R05.9 Cough, unspecified; Z11.52 Encounter for screening for COVID-19
CPT/HCPCS: 93005; 85025; 81001; 80048; 36415; 83735; 85610; 80076; 84484; 83880; 71045; 96360; 99284; 87428; J7040